=== PATIENT | female | born 1945 | race Caucasian/White ===

== ENCOUNTER 2019-06-24 09:51 | Outpatient (CLI) | payer MEDICARE, SELFPAY ==
--- NOTE | ~2019-06-24 | MM_ITS ---
EXAMINATION: MM screening claudia BI w akin HISTORY: Screening mammogram TECHNIQUE: Craniocaudal and mediolateral oblique 3-D tomosynthesis images were obtained and synthetic 2-D images were generated. CAD analysis was submitted and interpreted. COMPARISON: No prior mammogram is available for comparison at this institution. BREAST PARENCHYMAL COMPOSITION: FINDINGS: Circumscribed benign-appearing partially peripherally calcified 4.5 x 6.5 mm lesion is note d in the upper central right breast. There is no evidence of suspicious mass, calcification, or archi tectural distortion to suggest malignancy in either breast. There has been no suspicious interval liz nge. IMPRESSION: 1. No mammographic evidence of malignancy. 2. Recommend routine screening mammography in one year. BI-RADS Category 2: Benign finding(s). Reviewed, dictated and finalized at location A. UCT CRAFTSMAN
--- NOTE | ~2019-06-24 | DEXA_ITS ---
Bone Density Report Name: Milka Gomez Age: 73 Sex: Female Ethnicity: White Date of : 1945 Indication: postmenopausal; parental hip fracture; cancer; hysterectomy; Referring Provider: PHYSICIAN NOT ON STAFF Study: Bone densitometry was performed. Exam Date: June 24, 2019 Accession number: [id number] Bone Density: Region BMD T-score Z-score Classification AP Spine (L1, L3) 1.073 0.5 2.7 Normal Femoral Neck (Left) 0.739 -1.0 1.0 Normal Total Hip (Left) 0.925 -0.1 1.5 Normal Total Hip Bilateral Avg 0.891 -0.4 1.2 Normal Femoral Neck (Right) 0.701 -1.3 0.6 Osteopenia Total Hip (Right) 0.856 -0.7 0.9 Normal World Health Organization criteria for BMD impression classify patients as: Normal (T-score at or above -1.0), Osteopenia (T-score between -1.0 and -2.5), or Osteoporosis (T-score at or below -2.5). 10-year Fracture Risk(1): Major Osteoporotic Fracture 16% Hip Fracture 4.7% Reported Risk Factors: [place] (), Neck BMD=0.701, BMI=26.9, parental fracture (1) FRAX(R) Version 3.08. Fracture probability calculated for an untreated patient. Fracture probability may be lower if the patient has received treatment. Previous Exams: Region Exam Age BMD T-score BMD Change BMD Change Date g/cm2 vs Baseline vs Previous AP Spine(L1, L3) 06/24/2019 73 1.073 0.5 0.007(0.7%)# 0.007(0.7%)# 08/25/2011 65 1.066 0.5 Total Hip(Left) 06/24/2019 73 0.925 -0.1 -0.027(-2.9%)# -0.027(-2.9%)# 08/25/2011 65 0.952 0.1 Total Hip(Right) 06/24/2019 73 0.856 -0.7 -0.078(-8.3%)# -0.078(-8.3%)# 08/25/2011 65 0.933 -0.1 *Denotes significance at 95% confidence level, LSC for AP Spine = 0.022 g/cm2, LSC for Total Hip = 0.027 g/cm2 Clinical Information Provided by Patient: Parent has had a hip fracture Has used the following medications: Vitamin D, Calcium Has the following medical conditions: Cancer, Hysterectomy Patient maximum height was 65 Menopause Age: 53 No regular weight bearing exercise Drinks caffeinated beverages Onset of menses at age 13 Number of children 0 Impression: The patient has low bone mass, based on the Right Femoral Neck T-score. The patient has an estimated ten-year risk of hip fracture of 4.7% and an estimated ten-year risk of major fracture of 16%, based on the WHO FRAX algorithm. The patient has risk factors, including: parental hip fracture. No significant bone loss was observed. Discuss
== END 2019-06-24 09:52 | disposition home or self-care (01) ==
PROVIDERS: PCP Internal Medicine
DX: Z12.31 Encounter for screening mammogram for malignant neoplasm of breast (principal); M81.0 Age-related osteoporosis without current pathological fracture; M85.851 Other specified disorders of bone density and structure, right thigh
CPT/HCPCS: 77063; 77067; 77080

== ENCOUNTER 2019-07-26 12:45 | Outpatient (CLI) | payer MEDICARE, SELFPAY | END 2019-07-26 12:46 | disposition home or self-care (01) | PROVIDERS: PCP Internal Medicine; Visit Provider Internal Medicine | DX: J06.9 Acute upper respiratory infection, unspecified (principal) | CPT/HCPCS: 87070; 87205 ==

== ENCOUNTER 2019-11-15 15:08 | Outpatient (CLI) | payer MEDICARE, SELFPAY ==
[2019-11-15 16:06] LABS: Blood Urea Nitrogen 17 mg/dL (7-17); Calcium 8.9 mg/dL (8.4-10.2); Carbon Dioxide 29 mmol/L (22-30); Chloride 102 mmol/L (98-107); Cholesterol 151 mg/dL (0-200); Estimated Glomerular Filt Rate > 60; Glucose 95 mg/dL (65-105); HDL Direct 60 mg/dL; Hemoglobin A1C 5.8 % (<5.7); Potassium 3.9 mmol/L (3.4-5.0); Sodium 139 mmol/L (137-145); Triglycerides 155 mg/dL (<150)
[2019-11-15 16:17] LABS: LDL Cholesterol Direct 73 mg/dL
[2019-11-15 16:37] LABS: Thyroid Stimulating Hormone 0.931 uIU/mL (0.465-4.680)
== END 2019-11-15 15:09 | disposition home or self-care (01) ==
LOC: ANHLAB 15:10
PROVIDERS: PCP Internal Medicine; Visit Provider Internal Medicine
DX: E78.2 Mixed hyperlipidemia (principal); Z79.899 Other long term (current) drug therapy
CPT/HCPCS: 36415; 80048; 80061; 83036; 84443

== ENCOUNTER 2020-10-23 14:35 | Outpatient (CLI) | payer MEDICARE, SELFPAY ==
--- NOTE | ~2020-10-23 | XR_ITS ---
XR lumbar spine 2-3V 10/23/2020 14:58 Indication: Low back pain Procedure: KUB Comparison: No prior studies for comparison. Findings: There is disc narrowing at all lumbar levels. There is grade 1 degenerative spondylolisthes is at L4-5. There is moderate multilevel facet hypertrophy of the mid and lower lumbar spine. No acut e fracture or traumatic malalignment. Pedicles intact. Sacral foramen are symmetric Impression: 1: Moderate-severe lumbar spondylosis. Reviewed, dictated and finalized at location B. Impression: 1: Moderate-severe lumbar spondylosis.
--- NOTE | ~2020-10-23 | XR_ITS ---
EXAMINATION: XR shoulder LT min 2V DATE: 10/23/2020 14:57 INDICATION: Left shoulder pain. TECHNIQUE: 4 views of left shoulder were obtained. COMPARISON: None. FINDINGS: Bone alignment is normal. No fracture. There is mild osteoarthritis of glenohumeral joint a nd acromioclavicular joint characterized by tiny marginal osteophytes. IMPRESSION: 1. Mild polyarticular osteoarthritis. Reviewed, dictated and finalized at location A.
== END 2020-10-23 14:36 | disposition home or self-care (01) ==
PROVIDERS: PCP Internal Medicine; Visit Provider Internal Medicine
DX: M19.012 Primary osteoarthritis, left shoulder (principal); M47.896 Other spondylosis, lumbar region
CPT/HCPCS: 72100; 73030

== ENCOUNTER → 2020-11-25 12:46 | Outpatient (CLI) | payer MEDICARE, SELFPAY ==
--- NOTE | ~2020-11-25 | MM_ITS ---
EXAMINATION: MM screening claudia BI w akin HISTORY: Screening mammogram, family history of breast cancer in her mother. TECHNIQUE: Craniocaudal and mediolateral oblique 3-D tomosynthesis images were obtained and synthetic 2-D images were generated. CAD analysis was submitted and interpreted. COMPARISON: 06/24/2019, 03/01/2017, 11/06/2014 BREAST PARENCHYMAL COMPOSITION: The breasts are almost entirely fatty. FINDINGS: There is no evidence of suspicious mass, calcification, or architectural distortion to sugg est malignancy in either breast. There has been no suspicious interval change. IMPRESSION: 1. No mammographic evidence of malignancy. 2. Recommend routine screening mammography in one year. BI-RADS Category 1: Negative Reviewed, dictated and finalized at location A.
== END ==
PROVIDERS: PCP Internal Medicine
DX: Z12.31 Encounter for screening mammogram for malignant neoplasm of breast (principal)
CPT/HCPCS: 77063; 77067

== ENCOUNTER 2020-12-11 15:34 | Outpatient (CLI) | payer MEDICARE, SELFPAY ==
[2020-12-11 16:05] LABS: Basophils Absolute Auto 0.1 K/mm3 (0.0-0.1); Basophils Percent Auto 1.1 % (0.2-1.2); Eosinophils Absolute Auto 0.2 K/mm3 (0-0.3); Eosinophils Percent Auto 4.3 % (0-4.4); Hematocrit 42.7 % (37.0-47.0); Hemoglobin 13.7 g/dL (12.0-15.0); Immature Granulocyte Absolute 0.01 K/mm3 (0.00-0.031); Immature Granulocyte Percent A 0.2 % (0-0.5); Lymphocytes Absolute Auto 1.17 K/mm3 (0.9-3.2); Lymphocytes Percent Auto 26.4 % (18.3-44.2); Mean Corpuscular HGB Conc 32.1 g/dl (32-36); Mean Corpuscular Hemoglobin 30.9 pg (26-34); Mean Corpuscular Volume 96.2 fl (80-100); Mean Platelet Volume 10.2 fl (7.4-10.4); Monocytes Absolute Auto 0.4 K/mm3 (0.1-0.6); Neutrophils Absolute Auto 2.6 K/mm3 (1.3-6.7); Platelet Count Result 214 k/mm3 (150-375); Red Blood Count 4.44 M/mm3 (4.2-5.4); Red Cell Distribution Width 13.8 % (11.5-14.5); White Blood Count 4.4 K/mm3 (4.5-10.0)
[2020-12-11 16:12] LABS: Alanine Aminotransferase 30 U/L (4-35); Albumin Level 4.2 g/dL (3.5-5.1); Alkaline Phosphatase 64 U/L (38-126); Anion Gap 6 mmol/L (8-16); Aspartate Amino Transferase 31 U/L (14-36); Bilirubin,Total 0.2 mg/dL (0.2-1.3); Blood Urea Nitrogen 17 mg/dL (7-17); Calcium 9.4 mg/dL (8.4-10.2); Carbon Dioxide 30 mmol/L (22-30); Chloride 105 mmol/L (98-107); Cholesterol 136 mg/dL (0-200); Estimated Glomerular Filt Rate > 60; Glucose 101 mg/dL (65-110); HDL Direct 64 mg/dL; Potassium 4.2 mmol/L (3.4-5.0); Sodium 141 mmol/L (137-145); Triglycerides 208 mg/dL (<150)
[2020-12-11 16:22] LABS: LDL Cholesterol Direct 54 mg/dL
[2020-12-11 16:58] LABS: Hemoglobin A1C 5.6 % (<5.7)
[2020-12-16 01:32] LABS: Vitamin D 1,25 (OH)2 Total 38 pg/mL (18-72); Vitamin D2 1,25 (OH)2 <8 pg/mL; Vitamin D3 1,25 (OH)2 38 pg/mL
== END 2020-12-11 15:35 | disposition home or self-care (01) ==
LOC: ANHLAB 15:36
PROVIDERS: PCP Internal Medicine; Visit Provider Internal Medicine
DX: E55.9 Vitamin D deficiency, unspecified (principal); E78.2 Mixed hyperlipidemia; R73.03 Prediabetes; Z79.899 Other long term (current) drug therapy
CPT/HCPCS: 36415; 80053; 80061; 82652; 83036; 85025

== ENCOUNTER 2021-09-15 14:40 | Outpatient (CLI) | payer MEDICARE, SELFPAY ==
--- NOTE | ~2021-09-15 | MR_ITS ---
EXAMINATION: MR lumbar spine wo con DATE: 09/15/2021 15:51 INDICATION: Dorsalgia, unspecified. TECHNIQUE: Magnetic resonance imaging (MRI) of the lumbar spine was performed without intravenous con trast. Sequences included sagittal T2-weighted FSE, sagittal T2-weighted FS FSE, sagittal T1-weighted FSE, and axial T2-weighted FSE. COMPARISON: Lumbar spine radiograph 10/23/2020 FINDINGS: There is 9 degrees levocurvature of lumbar spine. There is 3 mm retrolisthesis of L1 on L2 and 5 mm anterolisthesis of L4 on L5. There is mild chronic anterior wedging of T10 and T11 vertebral bodies. There is mildly decreased disc height at T12-L1, moderately decreased disc height at L1-L2 a nd L2-L3, and mildly decreased disc height at L3-L4 and L4-L5. There is ligamentum flavum hypertrophy at the disc levels from L1-L2 through L4-L5. The distal spinal cord signal intensity is normal. The conus medullaris is at L1. The following disc levels are specifically discussed: L1-L2: The disc is bulging with superimposed left central extrusion. There is moderate bilateral face t joint osteoarthritis. There is mild bilateral neural foraminal stenosis. There is mild central janina l stenosis. L2-L3: The disc is bulging and has an annular fissure. There is severe bilateral facet joint osteoart hritis. There is mild bilateral neural foraminal stenosis. There is mild central canal stenosis. L3-L4: The disc is bulging and has an annular fissure. There is severe bilateral facet joint osteoart hritis. There is moderate bilateral neural foraminal stenosis. There is moderate central canal stenos is. L4-L5: The disc is bulging and has an annular fissure. There is severe bilateral facet joint osteoart hritis. There is mild bilateral neural foraminal stenosis. There is severe central canal stenosis. L5-S1: The disc does not extend beyond the endplate margin. There is severe bilateral facet joint ost eoarthritis. There is mild bilateral neural foraminal stenosis. There is no central canal stenosis. IMPRESSION: 1. Severe lumbar spondylosis. Reviewed, dictated and finalized at location B.
== END 2021-09-15 14:41 | disposition home or self-care (01) ==
PROVIDERS: PCP Internal Medicine; Visit Provider Internal Medicine
DX: G89.29 Other chronic pain (principal); M54.9 Dorsalgia, unspecified; M43.10 Spondylolisthesis, site unspecified; M47.816 Spondylosis without myelopathy or radiculopathy, lumbar region
CPT/HCPCS: 72148

== ENCOUNTER 2021-10-27 10:12 | Outpatient (CLI) | payer MEDICARE, SELFPAY ==
[2021-10-27 10:42] LABS: Basophils Absolute Auto 0.1 K/mm3 (0.0-0.1); Basophils Percent Auto 1.2 % (0.2-1.2); Eosinophils Absolute Auto 0.1 K/mm3 (0-0.3); Eosinophils Percent Auto 2.7 % (0-4.4); Hematocrit 42.5 % (37.0-47.0); Immature Granulocyte Absolute 0.01 K/mm3 (0.00-0.031); Immature Granulocyte Percent A 0.2 % (0-0.5); Mean Corpuscular HGB Conc 32.9 g/dl (32-36); Mean Corpuscular Hemoglobin 31.7 pg (26-34); Mean Corpuscular Volume 96.2 fl (80-100); Mean Platelet Volume 9.8 fl (7.4-10.4); Monocytes Absolute Auto 0.7 K/mm3 (0.1-0.6); Monocytes Percent Auto 13.7 % (2.6-8.5); Neutrophils Absolute Auto 2.7 K/mm3 (1.3-6.7); Neutrophils Percent Auto 55.2 % (45.5-73.1); Platelet Count Result 214 k/mm3 (150-375); Red Blood Count 4.42 M/mm3 (4.2-5.4); Red Cell Distribution Width 13.7 % (11.5-14.5); White Blood Count 4.8 K/mm3 (4.5-10.0)
[2021-10-27 10:51] LABS: Alanine Aminotransferase 26 U/L (6-35); Albumin Level 4.3 g/dL (3.5-5.1); Alkaline Phosphatase 52 U/L (38-126); Anion Gap 3 mmol/L (8-16); Aspartate Amino Transferase 26 U/L (14-36); Bilirubin,Total 0.2 mg/dL (0.2-1.3); Blood Urea Nitrogen 15 mg/dL (7-17); Calcium 8.9 mg/dL (8.4-10.2); Carbon Dioxide 31 mmol/L (22-30); Chloride 106 mmol/L (98-107); Cholesterol 150 mg/dL (0-200); Estimated Glomerular Filt Rate > 60; Glucose 98 mg/dL (65-110); HDL Direct 64 mg/dL; Potassium 4.3 mmol/L (3.4-5.0); Sodium 140 mmol/L (137-145); Triglycerides 94 mg/dL (<150)
[2021-10-27 11:02] LABS: LDL Cholesterol Direct 59 mg/dL
[2021-10-27 11:03] LABS: Hemoglobin A1C 5.6 % (<5.7)
[2021-10-27 11:35] LABS: Free T4 Free Thyroxine 0.85 ng/mL (0.78-2.19); Vitamin D 25 Hydroxy 51.6 ng/mL
== END 2021-10-27 10:13 | disposition home or self-care (01) ==
LOC: ANHLAB 10:14
PROVIDERS: PCP Internal Medicine; Visit Provider Internal Medicine
DX: E78.2 Mixed hyperlipidemia (principal); Z79.899 Other long term (current) drug therapy; E55.9 Vitamin D deficiency, unspecified; R73.03 Prediabetes; Z13.29 Encounter for screening for other suspected endocrine disorder
CPT/HCPCS: 36415; 80053; 80061; 82306; 83036; 84439; 84443; 85025

== ENCOUNTER 2022-03-03 15:17 | Outpatient (CLI) | payer MEDICARE, SELFPAY ==
[2022-03-03 16:21] LABS: Alanine Aminotransferase 28 U/L (6-35); Albumin Level 4.6 g/dL (3.5-5.1); Alkaline Phosphatase 50 U/L (38-126); Anion Gap 11 mmol/L (8-16); Aspartate Amino Transferase 29 U/L (14-36); Bilirubin,Total 0.3 mg/dL (0.2-1.3); Blood Urea Nitrogen 15 mg/dL (7-17); Carbon Dioxide 27 mmol/L (22-30); Chloride 102 mmol/L (98-107); Cholesterol 140 mg/dL (0-200); Estimated Glomerular Filt Rate > 60; Glucose 109 mg/dL (65-110); HDL Direct 73 mg/dL; Potassium 4.1 mmol/L (3.4-5.0); Sodium 140 mmol/L (137-145); Triglycerides 97 mg/dL (<150)
[2022-03-03 16:32] LABS: LDL Cholesterol Direct 50 mg/dL
[2022-03-03 17:25] LABS: Hemoglobin A1C 5.8 % (<5.7)
== END 2022-03-03 15:18 | disposition home or self-care (01) ==
PROVIDERS: PCP Internal Medicine; Visit Provider Internal Medicine
DX: R73.03 Prediabetes (principal); E78.2 Mixed hyperlipidemia; Z79.899 Other long term (current) drug therapy
CPT/HCPCS: 36415; 80053; 80061; 83036

== ENCOUNTER → 2022-04-11 07:27 | Outpatient (CLI) | payer MEDICARE, SELFPAY ==
--- NOTE | ~2022-04-11 | MM_ITS ---
EXAMINATION: MM screening claudia BI w akin HISTORY: Screening mammogram, family history of breast cancer in her mother. TECHNIQUE: Craniocaudal and mediolateral oblique 3-D tomosynthesis images were obtained and synthetic 2-D images were generated. CAD analysis was submitted and interpreted. COMPARISON: 11/25/2020, 06/24/2019, 03/01/2017 BREAST PARENCHYMAL COMPOSITION: There are scattered areas of fibroglandular density. FINDINGS: No suspicious mass, calcification, or architectural distortion are identified in either ren ast to suggest malignancy. There has been no suspicious interval change. IMPRESSION: 1. No mammographic evidence of malignancy. 2. Recommend routine screening mammography in one year. BI-RADS Category 1: Negative Reviewed, dictated and finalized at location A. I PRACTITIONER
== END ==
PROVIDERS: PCP Internal Medicine
DX: Z12.31 Encounter for screening mammogram for malignant neoplasm of breast (principal)
CPT/HCPCS: 77063; 77067

== ENCOUNTER 2022-04-25 14:27 | Outpatient (CLI) | payer MEDICARE, SELFPAY ==
--- NOTE | ~2022-04-25 | DEXA_ITS ---
Bone Density Report Name: SASHA HENDERSON Age: 76 Sex: Female Ethnicity: White Date of : 1945 Indication: postmenopausal; screening for osteoporosis; height loss; cancer; hysterectomy; Referring Provider: JUDIE IZQUIERDO Study: Bone densitometry was performed. Exam Date: April 25, 2022 Accession number: [id number] Bone Density: Region BMD T-score Z-score Classification AP Spine(L1, L3) 1.054 0.4 2.7 Normal Femoral Neck (Left) 0.714 -1.2 0.9 Osteopenia Total Hip (Left) 0.866 -0.6 1.2 Normal Femoral Neck (Right) 0.706 -1.3 0.8 Osteopenia Total Hip (Right) 0.806 -1.1 0.7 Osteopenia Total Hip Mean 0.836 -0.9 1.0 Normal World Health Organization criteria for BMD impression classify patients as: Normal (T-score at or above -1.0), Osteopenia (T-score between -1.0 and -2.5), or Osteoporosis (T-score at or below -2.5). 10-year Fracture Risk(1): Major Osteoporotic Fracture 11% Hip Fracture 2.0% Reported Risk Factors: [place] (), Neck BMD=0.706, BMI=28.1 (1) FRAX(R) Version 3.08. Fracture probability calculated for an untreated patient. Fracture probability may be lower if the patient has received treatment. Clinical Information Provided by Patient: Has used the following medications: Vitamin D, Calcium Has the following medical conditions: Cancer, Hysterectomy Patient maximum height was 65 Menopause Age: 53 No regular weight bearing exercise Drinks caffeinated beverages Onset of menses at age 12 Number of children 0 Impression: The patient has low bone mass, based on the Right Femoral Neck T-score. The patient has an estimated ten-year risk of hip fracture of 2% and an estimated ten-year risk of major fracture of 11%, based on the WHO FRAX algorithm. Discussion: BONE DENSITY IS LOW AT ONE OR MORE SKELETAL SITES. This patient's lowest T-score is low at one or more skeletal sites. It meets the World Health Organization's (WHO) criteria for ?low bone mass? (T-score between -1.0 and -2.5). The patient's 10-year risk of fracture as calculated by FRAX is less than the threshold where pharmacological therapy is recommended by the National Osteoporosis Foundation (NOF). However, all treatment decisions require clinical judgment and consideration of individual patient factors, including patient preferences, comorbidities, previous drug use, risk factors not captured in the FRAX model (e.g., frailty, falls, vitamin D deficiency, increased bone turnover, interval significant decline in bone density) and possible under or overestimation of fracture risk by FRAX. The patient should follow a healthful lifestyle (good nutrition with adequate calcium and vitamin D, and appropriate weight-bearing exercise). Follow-Up: Consider repeating this study in 2 to 3 years to reassess thi
== END 2022-04-25 14:28 | disposition home or self-care (01) ==
LOC: ANHIMG 14:29
PROVIDERS: PCP Internal Medicine; Visit Provider Internal Medicine
DX: Z78.0 Asymptomatic menopausal state (principal); M85.852 Other specified disorders of bone density and structure, left thigh; M85.851 Other specified disorders of bone density and structure, right thigh
CPT/HCPCS: 77080

== ENCOUNTER 2022-08-18 11:24 | Outpatient (CLI) | payer MEDICARE, SELFPAY ==
[2022-08-18 13:11] LABS: Influenza A QL RT-PCR Negative (Negative); Influenza B QL RT-PCR Negative (Negative); SARS-CoV-2 RNA PCR Positive
== END 2022-08-18 11:25 | disposition home or self-care (01) ==
LOC: ANHLAB 11:26
PROVIDERS: PCP Internal Medicine; Visit Provider Internal Medicine
DX: U07.1 COVID-19 (principal)
CPT/HCPCS: 87636

== ENCOUNTER 2022-08-29 17:00 | Outpatient (CLI) | payer MEDICARE, SELFPAY ==
[2022-08-29 17:21] LABS: Basophils Absolute Auto 0.1 K/mm3 (0.0-0.1); Basophils Percent Auto 1.4 % (0.2-1.2); Eosinophils Absolute Auto 0.1 K/mm3 (0-0.3); Hematocrit 39.8 % (37.0-47.0); Hemoglobin 12.7 g/dL (12.0-15.0); Lymphocytes Absolute Auto 1.43 K/mm3 (0.9-3.2); Lymphocytes Percent Auto 28.7 % (18.3-44.2); Mean Corpuscular HGB Conc 31.9 g/dl (32-36); Mean Corpuscular Hemoglobin 30.6 pg (26-34); Mean Corpuscular Volume 95.9 fl (80-100); Mean Platelet Volume 9.8 fl (7.4-10.4); Monocytes Absolute Auto 0.5 K/mm3 (0.1-0.6); Monocytes Percent Auto 10.2 % (2.6-8.5); Neutrophils Absolute Auto 2.9 K/mm3 (1.3-6.7); Neutrophils Percent Auto 57.7 % (45.5-73.1); Platelet Count Result 241 k/mm3 (150-375); Red Blood Count 4.15 M/mm3 (4.2-5.4); Red Cell Distribution Width 14.3 % (11.5-14.5)
== END 2022-08-29 17:01 | disposition home or self-care (01) ==
PROVIDERS: PCP Internal Medicine; Visit Provider Internal Medicine
DX: D72.9 Disorder of white blood cells, unspecified (principal)
CPT/HCPCS: 36415; 85025

== ENCOUNTER 2022-11-16 14:06 | Outpatient (CLI) | payer MEDICARE, SELFPAY ==
--- NOTE | ~2022-11-16 | XR_ITS ---
XR hip BI 2V w AP pelvis DATE: 11/16/2022 14:38 INDICATION: Bilateral hip pain TECHNIQUE: AP pelvis. AP and lateral views of each hip. COMPARISON: None FINDINGS: Status post lower lumbar laminectomy and posterior surgical fusion at L3-5, interbody spina l fusion at L4-5. Normal alignment at the pubic symphysis and sacroiliac joints. No pelvic fracture or bone destruction is detected. No fracture or dislocation, avascular necrosis or bone destruction of either hip is evident. IMPRESSION: Status post lumbar laminectomy and L3-5 surgical fusion Reviewed, dictated and finalized at location A.
== END 2022-11-16 14:07 | disposition home or self-care (01) ==
PROVIDERS: PCP Internal Medicine; Visit Provider Internal Medicine
DX: M25.552 Pain in left hip (principal); M25.551 Pain in right hip; M96.1 Postlaminectomy syndrome, not elsewhere classified
CPT/HCPCS: 73521

== ENCOUNTER 2023-01-02 15:55 | Outpatient (CLI) | payer MEDICARE, SELFPAY ==
[2023-01-02 16:53] LABS: Alanine Aminotransferase 38 U/L (6-35); Albumin Level 4.4 g/dL (3.5-5.1); Alkaline Phosphatase 49 U/L (38-126); Anion Gap 6 mmol/L (8-16); Aspartate Amino Transferase 36 U/L (14-36); Bilirubin,Total 0.3 mg/dL (0.2-1.3); Blood Urea Nitrogen 14 mg/dL (7-17); Calcium 8.9 mg/dL (8.4-10.2); Carbon Dioxide 31 mmol/L (22-30); Chloride 102 mmol/L (98-107); Cholesterol 140 mg/dL (0-200); Estimated Glomerular Filt Rate > 60; Glucose 109 mg/dL (65-110); HDL Direct 56 mg/dL; Potassium 3.7 mmol/L (3.4-5.0); Sodium 139 mmol/L (137-145); Triglycerides 115 mg/dL (<150)
[2023-01-02 17:04] LABS: LDL Cholesterol Direct 65 mg/dL
[2023-01-02 17:22] LABS: Thyroid Stimulating Hormone 0.864 uIU/mL (0.465-4.680)
[2023-01-02 18:26] LABS: Vitamin D 25 Hydroxy 41.4 ng/mL
[2023-01-02 20:12] LABS: Hemoglobin A1C 5.6 % (<5.7)
== END 2023-01-02 15:56 | disposition home or self-care (01) ==
PROVIDERS: PCP Internal Medicine; Visit Provider Internal Medicine
DX: Z13.29 Encounter for screening for other suspected endocrine disorder (principal); Z79.899 Other long term (current) drug therapy; E55.9 Vitamin D deficiency, unspecified; E78.2 Mixed hyperlipidemia; R73.03 Prediabetes
CPT/HCPCS: 36415; 80053; 80061; 82306; 83036; 84439; 84443

== ENCOUNTER 2023-03-27 08:12 | Outpatient (CLI) | payer MEDICARE, SELFPAY ==
--- NOTE | ~2023-03-27 | XR_ITS ---
EXAMINATION: XR UGIAC wo kub DATE: 03/27/2023 08:49 INDICATION: Gastroesophageal reflux disease. TECHNIQUE: The patient drank thick barium, gas-producing crystals, and thin barium. Fluoroscopy of th e esophagus, stomach, and proximal small bowel was performed. Fluoroscopy exposure time was 0.8 minut es. The total number of images was 283. Total dose-area product was 2.642 Gy-cm^2. COMPARISON: None. FINDINGS: There is no mass or stricture of the esophagus. Esophageal motility is normal. There is a s mall sliding hiatal hernia. The stomach and proximal small bowel show normal folding patterns. IMPRESSION: 1. Small sliding hiatal hernia. Reviewed, dictated and finalized at location A. TRONICS TECHNICIAN
== END 2023-03-27 08:13 | disposition home or self-care (01) ==
PROVIDERS: PCP Internal Medicine; Visit Provider Internal Medicine
DX: K21.9 Gastro-esophageal reflux disease without esophagitis (principal); K44.9 Diaphragmatic hernia without obstruction or gangrene
CPT/HCPCS: 74246

== ENCOUNTER 2023-05-24 14:31 | Outpatient (CLI) | payer MEDICARE, SELFPAY ==
[2023-05-24 15:08] LABS: Basophils Percent Auto 0.8 % (0.2-1.2); Eosinophils Absolute Auto 0.1 K/mm3 (0-0.3); Eosinophils Percent Auto 2.8 % (0-4.4); Hematocrit 43.6 % (37.0-47.0); Hemoglobin 13.9 g/dL (12.0-15.0); Immature Granulocyte Absolute 0.01 K/mm3 (0.00-0.031); Immature Granulocyte Percent A 0.2 % (0-0.5); Lymphocytes Absolute Auto 1.26 K/mm3 (0.9-3.2); Lymphocytes Percent Auto 25.5 % (18.3-44.2); Mean Corpuscular HGB Conc 31.9 g/dl (32-36); Mean Corpuscular Hemoglobin 30.9 pg (26-34); Mean Corpuscular Volume 96.9 fl (80-100); Mean Platelet Volume 9.6 fl (7.4-10.4); Monocytes Absolute Auto 0.5 K/mm3 (0.1-0.6); Monocytes Percent Auto 9.1 % (2.6-8.5); Neutrophils Percent Auto 61.6 % (45.5-73.1); Platelet Count Result 262 k/mm3 (150-375); Red Cell Distribution Width 13.5 % (11.5-14.5); White Blood Count 4.9 K/mm3 (4.5-10.0)
[2023-05-24 15:16] LABS: Appearance Urine Clear (Clear); Bacteria Urine None Seen /hpf; Bilirubin Urine Negative (Negative); Blood Urine Negative (Negative); Color Urine Yellow (Yellow); Glucose Urine UA Negative (Negative); Ketones Urine Negative (Negative); Leukocyte Esterase Ur 1+ LEU/UL (Negative); Nitrate Urine Negative (Negative); Non Pathogenic Casts 0-2; Protein Urine Negative (Negative); RBC Urine 0-2 /hpf (0-2); Specific Grav Ur 1.012 (1.001-1.035); Squamous Epithelial Cell Urine Occasional /hpf (Few); Urobilinogen Urine 0.2 mg/dL (<2.0); pH Urine 7.5 (5.0-9.0)
[2023-05-24 15:22] LABS: Alanine Aminotransferase 26 U/L (6-35); Albumin Level 4.3 g/dL (3.5-5.1); Alkaline Phosphatase 55 U/L (38-126); Anion Gap 6 mmol/L (8-16); Aspartate Amino Transferase 27 U/L (14-36); Bilirubin,Total 0.4 mg/dL (0.2-1.3); Blood Urea Nitrogen 14 mg/dL (7-17); Carbon Dioxide 33 mmol/L (22-30); Chloride 101 mmol/L (98-107); Cholesterol 152 mg/dL (0-200); Estimated Glomerular Filt Rate > 60; Glucose 105 mg/dL (65-110); HDL Direct 59 mg/dL; Potassium 3.8 mmol/L (3.4-5.0); Sodium 140 mmol/L (137-145); Triglycerides 123 mg/dL (<150)
[2023-05-24 15:23] LABS: Add Urine Microscopic? YES
[2023-05-24 15:26] LABS: Hemoglobin A1C 5.9 % (<5.7)
[2023-05-24 15:33] LABS: LDL Cholesterol Direct 70 mg/dL
[2023-05-24 15:42] LABS: Vitamin D 25 Hydroxy 37.7 ng/mL
== END 2023-05-24 14:32 | disposition home or self-care (01) ==
LOC: ANHLAB 14:36
PROVIDERS: PCP Internal Medicine; Visit Provider Internal Medicine
DX: E55.9 Vitamin D deficiency, unspecified (principal); Z79.899 Other long term (current) drug therapy; E78.2 Mixed hyperlipidemia; R73.03 Prediabetes
CPT/HCPCS: 36415; 80053; 80061; 81001; 82306; 83036; 85025; 87086; 87088

== ENCOUNTER → 2023-07-07 16:06 | Outpatient (CLI) | payer MEDICARE, SELFPAY ==
--- NOTE | ~2023-07-07 | MM_ITS ---
EXAMINATION: MM screening claudia BI w akin HISTORY: Screening TECHNIQUE: Craniocaudal and mediolateral oblique 3-D tomosynthesis images were obtained and synthetic 2-D images were generated. CAD analysis was submitted and interpreted. COMPARISON: No prior mammogram is available for comparison at this institution. BREAST PARENCHYMAL COMPOSITION: There are scattered areas of fibroglandular density. FINDINGS: There is no evidence of suspicious mass, calcification, or architectural distortion to sugg est malignancy in either breast. There has been no suspicious interval change. IMPRESSION: 1. No mammographic evidence of malignancy. 2. Recommend routine screening mammography in one year. BI-RADS Category 1: Negative Reviewed, dictated and finalized at location A. H WASHER BACK TENDER
== END ==
DX: Z12.31 Encounter for screening mammogram for malignant neoplasm of breast (principal)
CPT/HCPCS: 77063; 77067

== ENCOUNTER 2023-10-31 16:18 | Outpatient (CLI) | payer MEDICARE, SELFPAY ==
--- NOTE | ~2023-10-31 | XR_ITS ---
XR hip RT 2V w AP pelvis Ordering provider: Dave Stovall MD History: . M25.551 - Pain in right hip . Comparison: November 16, 2022 FINDINGS: BONES: No acute fracture or dislocation. Postoperative changes in the lower lumbar area. HIP JOINT SPACES: Normal. SACROILIAC JOINT SPACES/LUMBAR SPINE: Left sacroiliitis. Mild degenerative changes of the visualized lower lumbar spine. PUBIC SYMPHYSIS: Pubic symphysitis. SOFT TISSUES: Normal. IMPRESSION: No acute osseous abnormality pelvis and right hip. Reviewed, dictated and finalized at location A.
== END 2023-10-31 16:19 | disposition home or self-care (01) ==
LOC: ANHIMG 16:21
PROVIDERS: Visit Provider Internal Medicine
DX: M25.551 Pain in right hip (principal)
CPT/HCPCS: 73502

== ENCOUNTER 2023-12-19 14:49 | Outpatient (CLI) | payer MEDICARE, SELFPAY ==
--- NOTE | ~2023-12-19 | XR_ITS ---
EXAM: [id number] DATE: 12/19/2023 15:36 HISTORY: WEIGHT BEARING, PAIN PLANTAR SURFACE . COMPARISON: None available. FINDINGS: Decreased mineralization. No fracture or dislocation. Splaying of the third and fourth toe s. No lytic or blastic lesion. Mild Achilles and plantar enthesopathy. Loss of the normal longitudina l arch. Mild degenerative change at the first MTP joint. No erosion or periosteal change. Soft tissue s within normal limits. IMPRESSION: Mild first MTP joint osteoarthritis. Pes planus. Splayed third and fourth toes which may accompany the presence of a Aleman's neuroma. Reviewed, dictated and finalized at location K.
== END 2023-12-19 14:50 | disposition home or self-care (01) ==
DX: M76.62 Achilles tendinitis, left leg (principal); M72.2 Plantar fascial fibromatosis; M19.072 Primary osteoarthritis, left ankle and foot
CPT/HCPCS: 73630

== ENCOUNTER 2023-12-28 14:15 | Outpatient (CLI) | payer MEDICARE, SELFPAY ==
--- NOTE | ~2023-12-28 | XR_ITS ---
XR hip LT 2V w AP pelvis Ordering provider: Dave Stovall MD History: . POSTERIOR PAIN. NKI . Comparison: October 31, 2023 FINDINGS: BONES: No acute fracture or dislocation. HIP JOINT SPACES: Normal. SACROILIAC JOINT SPACES/LUMBAR SPINE: The sacroiliac joint spaces are normal. Mild degenerative cruz es of the visualized lower lumbar spine.Postoperative changes in the lower lumbar area. PUBIC SYMPHYSIS: Normal. SOFT TISSUES: Normal. IMPRESSION: No acute osseous abnormality pelvis and left hip. Reviewed, dictated and finalized at location A.
== END 2023-12-28 14:16 | disposition home or self-care (01) ==
PROVIDERS: Visit Provider Internal Medicine
DX: M25.552 Pain in left hip (principal)
CPT/HCPCS: 73502

== ENCOUNTER 2024-04-08 16:48 | Outpatient (CLI) | payer MEDICARE, SELFPAY ==
[2024-04-08 17:36] LABS: Basophils Absolute Auto 0.1 K/mm3 (0.0-0.1); Basophils Percent Auto 1.3 % (0.2-1.2); Eosinophils Absolute Auto 0.2 K/mm3 (0-0.3); Eosinophils Percent Auto 2.9 % (0-4.4); Hematocrit 41.5 % (37.0-47.0); Hemoglobin 13.4 g/dL (12.0-15.0); Immature Granulocyte Absolute 0.01 K/mm3 (0.00-0.031); Immature Granulocyte Percent A 0.2 % (0-0.5); Lymphocytes Absolute Auto 1.23 K/mm3 (0.9-3.2); Lymphocytes Percent Auto 23.4 % (18.3-44.2); Mean Corpuscular HGB Conc 32.3 g/dl (32-36); Mean Corpuscular Hemoglobin 31.3 pg (26-34); Mean Platelet Volume 9.4 fl (7.4-10.4); Monocytes Absolute Auto 0.6 K/mm3 (0.1-0.6); Neutrophils Absolute Auto 3.2 K/mm3 (1.3-6.7); Neutrophils Percent Auto 60.2 % (45.5-73.1); Platelet Count Result 222 k/mm3 (150-375); Red Blood Count 4.28 M/mm3 (4.2-5.4); Red Cell Distribution Width 13.5 % (11.5-14.5); White Blood Count 5.3 K/mm3 (4.5-10.0)
[2024-04-08 17:43] LABS: Alanine Aminotransferase 31 U/L (6-35); Albumin Level 4.3 g/dL (3.5-5.1); Alkaline Phosphatase 49 U/L (38-126); Anion Gap 6 mmol/L (4-12); Aspartate Amino Transferase 35 U/L (14-36); Bilirubin,Total 0.5 mg/dL (0.2-1.3); Blood Urea Nitrogen 16 mg/dL (7-17); Carbon Dioxide 29 mmol/L (22-30); Chloride 105 mmol/L (98-107); Cholesterol 146 mg/dL (0-200); Estimated Glomerular Filt Rate > 60; Glucose 95 mg/dL (65-110); HDL Direct 62 mg/dL; Sodium 140 mmol/L (137-145); Triglycerides 103 mg/dL (<150)
[2024-04-08 17:48] LABS: Hemoglobin A1C 5.8 % (<5.7)
[2024-04-08 17:54] LABS: LDL Cholesterol Direct 58 mg/dL
[2024-04-08 18:07] LABS: Free T4 Free Thyroxine 0.85 ng/mL (0.78-2.19); Vitamin D 25 Hydroxy 41.6 ng/mL
[2024-04-08 18:13] LABS: Thyroid Stimulating Hormone 0.824 uIU/mL (0.465-4.680)
== END 2024-04-08 16:49 | disposition home or self-care (01) ==
LOC: ANHLAB 16:51
PROVIDERS: PCP Internal Medicine; Visit Provider Internal Medicine
DX: R73.03 Prediabetes (principal); E78.2 Mixed hyperlipidemia; E55.9 Vitamin D deficiency, unspecified; Z79.899 Other long term (current) drug therapy; Z13.29 Encounter for screening for other suspected endocrine disorder
CPT/HCPCS: 36415; 80053; 80061; 82306; 83036; 84439; 84443; 85025

== ENCOUNTER 2024-06-03 12:26 | Outpatient (CLI) | payer MEDICARE, SELFPAY ==
--- NOTE | ~2024-06-03 | DEXA_ITS ---
Bone Density Report Name: SASHA HENDERSON Age: 78 Sex: Female Ethnicity: White Date of : 1945 Indication: osteopenia; parental hip fracture; height loss; prior fracture; cancer; hysterectomy; Referring Provider: JUDIE IZQUIERDO Study: Bone densitometry was performed. Exam Date: June 03, 2024 Accession number: [id number] Bone Density: Region BMD T-score Z-score Classification AP Spine(L1, L2) 1.033 0.5 2.9 Normal Femoral Neck (Left) 0.701 -1.3 0.9 Osteopenia Total Hip (Left) 0.846 -0.8 1.1 Normal Femoral Neck (Right) 0.744 -0.9 1.3 Normal Total Hip (Right) 0.821 -1.0 0.9 Normal Total Hip Mean 0.833 -0.9 1.0 Normal World Health Organization criteria for BMD impression classify patients as: Normal (T-score at or above -1.0), Osteopenia (T-score between -1.0 and -2.5), or Osteoporosis (T-score at or below -2.5). 10-year Fracture Risk: FRAX not reported because: Prior hip or vertebral fracture Previous Exams: Region Exam Age BMD T-score BMD Change BMD Change Date g/cm2 vs Baseline vs Previous Total Hip(Left) 06/03/2024 78 0.846 -0.8 -0.079 (-8.5%) -0.020 (-2.3%) 04/25/2022 76 0.866 -0.6 -0.059 (-6.4%) -0.059 (-6.4%) 06/24/2019 73 0.925 -0.1 Total Hip(Right) 06/03/2024 78 0.821 -1.0 -0.035 (-4.1%) 0.015 (1.9%) 04/25/2022 76 0.806 -1.1 -0.050 (-5.9%) -0.050 (-5.9%) 06/24/2019 73 0.856 -0.7 *Denotes significance at 95% confidence level, LSC for Total Hip = 0.027 g/cm2 Clinical Information Provided by Patient: Have had a previous hip or vertebral fracture Has had a low trauma fracture Parent has had a hip fracture Has used the following medications: Vitamin D, Calcium Has the following medical conditions: Cancer, Hysterectomy Patient maximum height was 65 Menopause Age: 53 No regular weight bearing exercise Drinks caffeinated beverages Onset of menses at age 12 Number of children 0 Impression: The patient has low bone mass, based on the Left Femoral Neck T-score. The patient has risk factors, including: parental hip fracture, previous fracture. No significant bone loss was observed. Discussion: INCREASED RISK OF FRACTURE DUE TO HISTORY OF FRACTURE. The patient's previous fracture puts the patient at high risk of a future fracture. In untreated patients, the risk of osteoporotic fracture increases approximately two-fold for each 1.0 SD decrease in T-score. Low bone density is not the only risk factor for fracture; also consider factors such as patient's age, frailty or poor health, risk of falling, risk of injury, previous osteoporotic fracture, family history of osteoporosis, cigarette smoking, low body weight, etc. Not everyone with a low trauma fracture has osteoporosis; osteomalacia and other metabolic bone disorders should also be considered. Patients who have osteoporosis should be evaluated for specific diseases and conditions (secondary causes) that may cause or contribute to bone loss and fracture risk. National Osteoporosis Foundation (NOF) recommends pharmacologic intervention for patients with a prior hip or vertebral fracture regardless of BMD T-score. The patient should follow a healthful lifestyle (good nutrition with adequate calcium and vitamin D, and appropriate weight-bearing exercise). Follow-Up: Consider a repeat BMD and Vertebral Fracture Assessment (VFA) exam in 2 years or sooner if medically necessary, to reassess this patient's status. Reported by: JOSIE on 06/03/2024 1:07:00 PM. Reviewed, dictated and finalized at location AChristiano HARDEN
--- OUTSIDE RECORDS SUMMARY | 2024-06-06 13:10 | XMS_ITS | Clinical Summary ---
Author Organization [facility] Address [address] [place] [address] Care Team Providers Care Sack Lifter Name Role Phone Dave Stovall MD Primary Care Provider [phone] Source Comments [facility],non-owned Affiliates and Associated Physician Practices is amultiple site organization consisting of ambulatory clinics and hospital sitesin [place], [place], [place] and [place]. This disclosure is being madepursuant to the Care Everywhere program and may not contain all information available regarding this patient. Last updated 18.[facility] Allergies No known active allergies Medications * Be aware that medications may not be up to date on this document. Alwaysverify current medications with the patient. Medication Sig Dispensed Refills Start Date End Date Status acetaminophen CR (Tylenol Arthritis Pain) 650 MG tablet Take 2 (two) tablets by mouth as needed Active alendronate (Fosamax) 70 MG tablet Take 1 (one) tablet by mouth every 7 days before meal 10/02/2023 Active amitriptyline (Elavil) 10 MG tablet Take 2 (two) tablets by mouth once daily Active buPROPion XL 24hr (Wellbutrin-XL) 150 MG tablet Take 1 (one) tablet by mouth once daily 09/29/2023 Active cetirizine (ZyrTEC) 10 MG tablet Take 1 (one) tablet by mouth at bedtime Active Cholecalciferol 1.25 MG (27313 UT) Take 1 capsule by mouth once daily Active clobetasol (Temovate) 0.05 % ointment Apply to affected area 2 times daily as needed 09/07/2023 Active HYDROcodone-acetamin ophen ([place]) 5-325 MG tablet Take 1 (one) tablet by mouth 4 times daily as needed For pain. 11/14/2023 Active levocetirizine (Xyzal) 5 MG tablet Take 1 (one) tablet by mouth once daily Active Magnesium Citrate 100 MG Take 1 (one) tablet by mouth at bedtime Active Multiple Vitamins-Minerals (PRESERVISION AREDS PO) Take by mouth once daily Active rosuvastatin (Crestor) 10 MG tablet Take 1 (one) tablet by mouth once daily Active meloxicam (Mobic) 15 MG tabletIndications:Pa in of left heel,Plantar fasciitis, left,Achilles tendinitis of left lower extremity Take 1 (one) tablet by mouth once daily as needed with food 30 tablet 1 12/14/2023 Active Active Problems Problem Noted Date Diagnosed Date Lumbar stenosis 06/04/2022 Spondylolisthesis at L4-L5 level 10/27/2021 Overview (12/14/2023): Last Assessment & Plan: Mrs. Henderson wishes to delay consideration of any surgical treatment until after a trip to [place] in the fall. If symptoms worsen and she wishes to proceed with surgery, she would benefit from L3-L5 laminectomy and fusion. Patient to call the office when she is ready to schedule. Encounters Date Type Department Care Team Description 03/12/2024 Refill [facility] - Podiatry [id number] [address] [place] DPM Refill Request from Last 3 Months Social History Tobacco Use Types Packs/Day Years Used Date Smoking Tobacco: Never Smokeless Tobacco: Never Tobacco Cessation:Counseling Given: Not Answered Sex and Gender Information Value Date Recorded Sex Assigned at Female 12/17/2023 11:42 AM CDT Gender Identity Female 12/17/2023 11:42 AM CDT Sexual Orientation Lesbian 12/17/2023 11 :42 AM CDT Last Filed Vital Signs Vital Sign Reading Time Taken Comments Blood Pressure 118/72 12/14/2023 2:45 PM CDT Pulse 74 12/14/2023 2:45 PM CDT Temperature - - Respiratory Rate - - Oxygen Saturation 95% 12/14/2023 2:45 PM CDT Inhaled Oxygen Concentration - - Weight 74.4 kg (164 lb) 12/14/2023 2:45 PM CDT Height 162.6 cm (5' 4 ) 12/14/2023 2:45 PM CDT Body Mass Index 28.15 12/14/2023 2:45 PM CDT Plan of Treatment Health Maintenance Due Date Last Done Comments BONE DENSITY TESTING 1945 HEPATITIS C SCREENING 10/04/1964 DTAP/TDAP/TD VACCINES (1 - Tdap) 1965 PNEUMOCOCCAL VACCINE 50+ (1 of 1 - PCV) 1996 ZOSTER VACCINE (1 of 2) 1996 Respiratory Syncytial Virus (RSV) Vaccine Pt: or over 60 yrs (1 - 1-dose 75+ series) 2021 COVID-19 VACCINE ( - 2023-2 5 season) 2024 INFLUENZA VACCINE (#1) 2024 DEPRESSION SCREENING 05/15/2024 MEDICARE AWV ? CALENDAR YEAR 2024 HEPATITIS B VACCINE Aged Out No longe r eligible based on patient's age to complete this topic HIB VACCINE Aged Out No longer eligi ble based on patient's age to complete this topic HPV VACCINE Aged Out No longer eligi ble based on patient's age to complete this topic MENINGOCOCCAL (Group B) VACCINE Aged Out No longer eligible based on patient's age to complete this topic MENINGOCOCCAL VACCINE Aged Out No [place] eligible based on patient's age to complete this topic Care Teams Sack Lifter Relationship Specialty Start Date End Date Dave Stovall MD [address] [place] [address] PCP - General Internal Medicine 12/14/23
--- OUTSIDE RECORDS SUMMARY | 2024-06-06 13:10 | XMS_ITS | Continuity of Care Document ---
Author Organization [facility] - Main Address [address] [address] Insurance Providers Payer Plan Claims Address Claims Phone Policy Number Group Number Relation Employer Guarantor Name Guarantor Guarantor Address Guarantor Phone [facility] MED[facility] ARE PAWEL BALDERAS [address] [address], [place] [address] [id number] Donavon Gomez 1945 [address] [place] [address] MEDIC ARE PAWEL BALDERAS [address], [place] [address] tel:[phone] Self Milka Gomez 1945 [address] [place] [address] [address] [employer] [address] [address], [place] [address] tel:[phone] Donavon Gomez 1945 [address] [place] [address] Problems Condition ICD9 code ICD10 code SNOMED code Start Date End Date S tatus Dysphagia, unspecified R13.10 W orking Other symptoms and signs involving the musculoskeletal system R29.898 Wo rking Encounter for screening mammogram for malignant neoplasm of breast Z12.31 Workin g Encounter for screening for other suspected endocrine disorder Z13.29 Workin g Pain in left foot M79.672 Workin g 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
--- OUTSIDE RECORDS SUMMARY | 2024-06-06 13:10 | XMS_ITS | Referral Summary ---
Author Organization [facility] Address [address] [place] [address] Care Team Providers Care Military Nurse Name Role Phone Dave Stovall MD Primary Care Provider [phone] Source Comments [facility],non-owned Affiliates and Associated Physician Practices is amultiple site organization consisting of ambulatory clinics and hospital sitesin [place], [place], [place] and [place]. This disclosure is being madepursuant to the Care Everywhere program and may not contain all information available regarding this patient. Last updated 18.[facility] Encounters Date Type Department Care Team Description 03/12/2024 Refill [facility] - Podiatry [address] [place] [address] Es Peacock DPM Refill Request from Last 3 Months Allergies No known active allergies Medications * [...] mouth at bedtime Active Cholecalciferol 1.25 MG (25738 UT) Take 1 capsule by mouth once daily Active clobetasol (Temovate) 0.05 % ointment Apply to affected area 2 times daily as needed 09/07/2023 Active HYDROcodone-acetamin ophen (Reva) 5-325 MG tablet Take 1 (one) tablet [...] surgical treatment until after a trip to [place] in the fall. If symptoms worsen and she wishes to proceed with surgery, she would benefit from L3-L5 laminectomy and fusion. Patient to call the office when she is ready to schedule. Social History Tobacco Use Types Packs/Day Years [...] 12/14/2023 2:45 PM CDT Plan of Treatment Not on file Care Teams Military Nurse Relationship Specialty Start Date End Date Dave Stovall MD [address] [place] [address] PCP - General Internal Medicine 12/14/23
--- OUTSIDE RECORDS SUMMARY | 2024-06-06 13:10 | XMS_ITS | Encounter Summary ---
Author Organization [facility] Health Address [address] [place] [address] Care Team Providers Care Interventional Radiology Tech Name Role Phone Dave Stovall MD Primary Care Provider [phone] Encounter Details Date Type Department Care Team (Late st Contact Info) Description 08/20/2017 Lab Requisition [facility] Derm[facility] Lab [address] [facility] [place] [phone] Hiren Goetz MD [address] [place] [address] Social History Tobacco Use Types Packs/Day Years Used Date Smoking Tobacco: Never Assessed Sex and Gender Information Value Date Recorded Sex Assigned at Female 12/17/2023 11:42 AM CDT Gender Identity Female 12/17/2023 11:42 AM CDT Sexual Orientation Lesbian 12/17/2023 11 :42 AM CDT documented as of this encounter Plan of Treatment Not on file documented as of this encounter Procedures Procedure Name Priority Date/Time Associated Diagnosis Comments DERMATOPATHOLOGY Routine 08/16/2017 12:0 0 AM CDT documented in this encounter Results * DERMATOPATHOLOGY (08/16/2017 12:00 AM CDT) Case Report Dermatopathology Report ? Case: [id number] ? Authorizing Provider: ??Hiren Goetz MD ?Collected: ? 08/16/2017 12:00 AM ? Pathologist: ? Liliana Downey MD ? Received: ?08/20/2017 01:21 PM ? Specimens: ?? A) - Skin, left upper back ? B) - Skin, left mid back ? 3:52 PM CDT DERMATOPATHOLOGY LABORATORY Final Diagnosis Specimen A. SKIN, left upper back: LICHEN PLANUS-LIKE KERATOSIS (BENIGN LICHENOID KERATOSIS) (L82.1) PRESENT AT MARGIN Specimen B. SKIN, left mid back: DERMAL SCAR (L90.5) PRESENT AT MARGIN 3:52 PM T DERMATOPATHOLOGY LABORATORY Clinical History A-B: R/O BCC 3:52 PM CDT DERMATOPATHOLOGY LABORATORY Gross Description Specimen: A: Received is one formalin filled container labeled with the patient's name and designated left upper back. The specimen consists of a shave biopsy measuring 85d82a7 mm, inked. Jar 0. Specimen: B: Received is one formalin filled container labeled with the patient's name and designated left mid back. The specimen consists of a shave biopsy measuring 12w37v4 mm, inked. Jar 0. 3:52 PM CDT DERMATOPATHOLOGY LABORATORY Microscopic Description Specimen A. SKIN, left upper back: The epidermis is mildly acanthotic. There is a lichenoid infiltrate with vacuolar changes of basilar keratinocytes and scattered necrotic keratinocytes. This lesion is present at the margin of the specimen. Specimen B. SKIN, left mid back: There are fibroblasts and collagen bundles oriented parallel to the skin surface with elongated blood vessels, some of which are oriented perpendicular to the skin surface.This lesion is present at the margin of the specimen. 3:52 PM CDT DERMATOPATHOLOGY LABORATORY Disclaimer An external and internal positive and negative controls are appropriate for the histochemical, immunohistochemical and immunofluorescence stain(s) in this case (if any), except where stated explicitly. The performance characteristics of the stain(s) cited in this report were developed and its performance characteristic determined by the Dermatopathology Laboratory at [facility]. These tests need not be, and therefore are not, approved by the [place] Food and Drug Administration. The tests are used for clinical purposes. Billing Codes Specimen Charges Stain Charges 88928 85315 1 1 3:52 PM CDT DERMATOPATHOLOGY LABORATORY Embedded Images 3:52 PM CDT DERMATOPATHOLOGY LABORATORY Pathology/Cytology TISSUE SPECIMEN FROM SKIN / Unknown 08/16/2017 08/20/2017 1:21 PM CDT Miscellaneous samples (specimen) TISSUE SPECIMEN FROM SKIN / Unknown 08/16/2017 08/20/2017 1:21 PM CDT Hiren Goetz MD LAB - PATHOLOGY/CYTO LOGY ORDERABLES DERMATOPATHOLOGY LABORATORY [facility] - Department of Dermatology [address] [facility] 5th Floor Lab B [address] [phone] documented in this encounter Visit Diagnoses Not on filedocumented in this encounter Care Teams Interventional Radiology Tech Relationship Specialty Start Date End Date Dave Stovall MD [address] [place] [address] PCP - General Internal Medicine 12/14/23 documented as of this encounter
--- OUTSIDE RECORDS SUMMARY | 2024-06-06 13:10 | XMS_ITS | Patient Health Summary ---
Author Organization [facility] Address [address] [place] [address] Care Team Providers Care Installation Superintendent Name Role Phone Dave Stovall MD Primary Care Provider [phone] Note from [facility],non-owned Affiliates and Associated Physician Practices is amultiple site organization consisting of ambulatory clinics and hospital sitesin [place], [place], [place] and [place]. This disclosure is being madepursuant to the Care Everywhere program and may not contain all information available regarding this patient. Last updated 18.[facility] Allergies No known active allergies Medications * Be aware that medications may not be up to date on this document. Alwaysverify current medications with the patient. * acetaminophen CR (Tylenol Arthritis Pain) 650 MG tablet Take 2 (two) tablets by mouth as needed * alendronate (Fosamax) 70 MG tablet(Started 10/02/2023) Take 1 (one) tablet by mouth every 7 days before meal * amitriptyline (Elavil) 10 MG tablet Take 2 (two) tablets by mouth once daily * buPROPion XL 24hr (Wellbutrin-XL) 150 MG tablet(Started 09/29/2023) Take 1 (one) tablet by mouth once daily * cetirizine (ZyrTEC) 10 MG tablet Take 1 (one) tablet by mouth at bedtime * Cholecalciferol 1.25 MG (37568 UT) Take 1 capsule by mouth once daily * clobetasol (Temovate) 0.05 % ointment(Started 09/07/2023) Apply to affected area 2 times daily as needed * HYDROcodone-acetaminophen (Coldwater) 5-325 MG tablet(Started 11/14/2023) Take 1 (one) tablet by mouth 4 times daily as needed For pain. * levocetirizine (Xyzal) 5 MG tablet Take 1 (one) tablet by mouth once daily * Magnesium Citrate 100 MG Take 1 (one) tablet by mouth at bedtime * Multiple Vitamins-Minerals (PRESERVISION AREDS PO) Take by mouth once daily * rosuvastatin (Crestor) 10 MG tablet Take 1 (one) tablet by mouth once daily * meloxicam (Mobic) 15 MG tablet(Started 12/14/2023) Take 1 (one) tablet by mouth once daily as needed with food 1 refill by 12/13/2024 Active Problems Problem Noted Date Diagnosed Date Lumbar stenosis 06/04/2022 Spondylolisthesis at L4-L5 level 10/27/2021 Social History Tobacco Use Types Packs/Day Years [...] Mass Index 28.15 12/14/2023 2:45 PM CDT Procedures * DERMATOPATHOLOGY(Performed 01/09/2019) * DERMATOPATHOLOGY(Performed 08/16/2017) * DERMATOPATHOLOGY(Performed 03/29/2017) * DERMATOPATHOLOGY(Performed 12/15/2016) * DERMATOPATHOLOGY(Performed 11/20/2013) * DERMATOPATHOLOGY(Performed 04/05/2013) * CYTOLOGY SMEAR PAP THIN PREP(Performed 07/09/1998) Results * DERMATOPATHOLOGY (01/09/2019 12:00 AM CDT) Only the most recent of6 resultswithin the time period is included. Case Report Dermatopathology Report ? Case: [id number] ? Authorizing Provider: ??Hiren Goetz MD ?Collected: ? 01/09/2019 12:00 AM ? Ordering Location: ? [facility] ?Received: ?01/10/2019 12:11 PM ? Pathologist: ? García Chung MD ? Specimen: ?Skin, left paranasal skin ? 9 2:34 PM CDT DERMATOPATHOLOGY LABORATORY Final Diagnosis Specimen A. SKIN, left paranasal skin: BENIGN VERRUCOUS KERATOSIS, INFLAMED (L82.1) 9 2:34 PM CDT DERMATOPATHOLOGY LABORATORY Clinical History R/O BCC. 9 2:34 PM CDT DERMATOPATHOLOGY LABORATORY Gross Description Specimen A: Received is one formalin filled container labeled with the patient's name and designated left paranasal skin. The specimen consists of a shave biopsy measuring [id number]. Jar 0. 9 2:34 PM CDT DERMATOPATHOLOGY LABORATORY Microscopic Description Specimen A. SKIN, left paranasal skin: Sections show hyperkeratosis, papillomatosis, hypergranulosis, and acanthosis. Inflammatory cells are present within the dermis. These histological findings can be seen in a verruca vulgaris or a seborrheic keratosis. 9 2:34 PM CDT DERMATOPATHOLOGY LABORATORY Disclaimer An external and internal positive and negative controls are appropriate for the histochemical, immunohistochemical and immunofluorescence stain(s) in this case (if any), except where stated explicitly. The performance characteristics of the stain(s) cited in this report were developed and its performance characteristic determined by the Dermatopathology Laboratory at [facility], directed by Dr. Tyree Chung. These tests need not be, and therefore are not, approved by the [place] Food and Drug Administration. The tests are used for clinical purposes. Billing Codes Specimen Charges Stain Charges 79507 1 9 2:34 PM CDT DERMATOPATHOLOGY LABORATORY Embedded Images 9 2:34 PM CDT DERMATOPATHOLOGY LABORATORY Pathology/Cytolog y TISSUE SPECIMEN FROM SKIN / Unknown 01/09/2019 01/10/2019 12:11 PM CDT Hiren Goetz MD LAB - PATHOLOGY/CYTO LOGY ORDERABLES DERMATOPATHOLOGY LABORATORY [facility] - Department of Dermatology [address] [facility], 5th Floor Lab B [address] [phone] * CYTOLOGY SMEAR PAP THIN PREP (07/09/1998 11:49 AM CONTINUITY MANAGER) Result CASE NUMBER [id number] Comment: ORDERING PHYSICIAN ??JESSICA VITALE SPECIMEN TYPE ?PAP Smear Date ? 07/09/1998 Procedure ?Cervical/Endocervical, 1 Vial for Thin Prep Received Specimen Adequacy ?Satisfactory for Evaluation Categorization ? Within Normal Limits Snomed. ?07/14/1998 1658 <1> Adon ? Brent Lai ([facility]) PAP Footnote ? The PAP smear is only a screening procedure to aid in the detection of cervical cancer and its precursors. ??It is not a diagnostic procedure and should not be used as the sole means to detect cervical cancer. ??Both false negative and false positive results have been experienced. MISCELLANEOUS SAMPLES / Unknown 07/09/1998 11:49 AM CONTINUITY MANAGER 07/10/1998 11:49 AM CONTINUITY MANAGER Historical Provider LAB - PATHOLOGY/C YTOLOGY ORDERABLES Care Teams Installation Superintendent Relationship Specialty Start Date End Date Dave Stovall MD [address] [place] [phone] PCP - General Internal Medicine 12/14/23
--- OUTSIDE RECORDS SUMMARY | 2024-06-06 13:10 | XMS_ITS | Encounter Summary ---
Author Organization [facility] Health Address [address] [facility] [place] [address] Care Team Providers Care Die Developer Name Role Phone Dave Stovall MD Primary Care Provider [phone] Encounter Details Date Type Department Care Team (Late st Contact Info) Description 01/10/2019 Lab Requisition [facility] DermPath Lab [address] [facility] [place] [phone] Hiren Goetz MD [address] [place] [address] Social History Tobacco Use Types Packs/Day Years [...] Priority Date/Time Associated Diagnosis Comments DERMATOPATHOLOGY Routine 01/09/2019 12:0 0 AM CDT documented in this encounter Results * DERMATOPATHOLOGY (01/09/2019 12:00 AM CDT) Case Report Dermatopathology Report ? Case: [id number] ? Authorizing Provider: ??Hiren Goetz MD ?Collected: ? 01/09/2019 12:00 AM ? Ordering Location: ? [facility] Derm[facility] Lab ?Received: ?01/10/2019 12:11 PM ? Pathologist: ? García Chung MD ? Specimen: ?Skin, left paranasal skin ? 2:34 PM CDT DERMATOPATHOLOGY LABORATORY Final Diagnosis Specimen A. SKIN, left paranasal skin: BENIGN VERRUCOUS KERATOSIS, INFLAMED (L82.1) 9 2:34 PM CDT DERMATOPATHOLOGY LABORATORY Clinical History R/O BCC. 9 2:34 PM CDT DERMATOPATHOLOGY LABORATORY Gross Description Specimen A: Received is one formalin filled container labeled with the patient's name and designated left paranasal skin. The specimen consists of a shave biopsy measuring 3b3k4pi. Jar 0. 2:34 PM CDT DERMATOPATHOLOGY LABORATORY Microscopic Description [...] characteristic determined by the Dermatopathology Laboratory at [facility], directed by Dr. Tyree Chung. These tests need not be, and therefore are not, approved by the [place] Food and Drug Administration. The tests are used for clinical purposes. Billing Codes Specimen Charges Stain Charges 45858 1 9 2:34 PM CDT DERMATOPATHOLOGY LABORATORY Embedded Images 9 2:34 PM CDT DERMATOPATHOLOGY LABORATORY Pathology/Cytolog y TISSUE SPECIMEN FROM SKIN / Unknown 01/09/2019 01/10/2019 12:11 PM CDT Hiren Goetz MD LAB - PATHOLOGY/CYTO LOGY ORDERABLES DERMATOPATHOLOGY LABORATORY [facility] - Department of Dermatology [address] [place] [address] [address] [phone] documented in this encounter Visit Diagnoses Not on filedocumented in this encounter Care Teams Die Developer Relationship Specialty Start Date End Date Dave Stovall MD [address] [place] [address] PCP - General Internal Medicine 12/14/23 documented as of this encounter
--- OUTSIDE RECORDS SUMMARY | 2024-06-06 13:11 | XMS_ITS | Clinical Summary ---
Author Organization [facility] Address [address] [place] [address]. [place] [address] [place] [address] Care Team Providers Care Primary Operator Name Role Phone Dave Stovall MD Primary Care Provider [phone] Allergies No known active allergies Medications acetaminophen CR (TYLENOL) 650 MG Tab CR 8 hr tablet Take 1,300 mg by mouth as needed. Active alendronate (FOSAMAX) 70 MG tablet Take 70 mg by mouth once a week. Has not yet started as of 05/31/22 2 Active ALPRAZolam (XANAX) 0.25 MG tablet Take 1 tablet by mouth as needed. 2 Active amitriptyline (ELAVIL) 10 MG tablet Take 2 tablets by mouth nightly. 3 Active buPROPion XL (WELLBUTRIN XL) 150 MG 24 hr tablet Take 1 tablet by mouth daily. 3 Active Calcium Carbonate-Vitam in D (CALCIUM-CARB 600 + D OR) Take 1 tablet by mouth daily. Active cholecalciferol (VITAMIN D-3) 1.25 MG (71661 UT) capsule Take 1 capsule by mouth daily. Active cetirizine (ZYRTEC) 10 MG tablet Take 1 tablet by mouth nightly. Active Magnesium Citrate 100 MG Tab Take 1 tablet by mouth nightly. Active rosuvastatin (CRESTOR) 10 MG tablet Take 10 mg by mouth daily. 2 Active FIBER ADULT GUMMIES OR Take 1 Application by mouth 2 (two) times a day. Takes 2 in Am AND 1 hs Active senna-docusate (SENOKOT-S) 8.6-50 MG tablet Take 1 tablet by mouth daily. 60 tablet 1 3 Active oxyCODONE-aceta minophen (PERCOCET) 5-325 MG tabletIndicatio ns:Acute Pain < 7 Day Supply,postop Take 1-2 tablets by mouth every 6 (six) hours as needed for Pain. Indications: Acute Pain < 7 Day Supply, postop 55 tablet 3 Active Active Problems Problem Noted Date Diagnosed Date Lumbar stenosis 06/04/2022 Family History Medical History Relation Comments Heart Disease Brother Diabetes Father Cancer Mother breast Relation Status Comments Brother Alive Father Mother Social History Tobacco Use Types Packs/Day Years Used Date Smoking Tobacco: Never Smokeless Tobacco: Never Tobacco Cessation:Counseling Given: Not Answered Alcohol Use Standard Drinks/Week Comments Yes 8.3 (1 standard drink = 0.6 oz p ure alcohol) 4-5 times/week Comments No Sex and Gender Information Value Date Recorded Sex Assigned at Not on file Legal Sex Female 3:17 PM MULTI PURPOSE MACHINE OPERATOR Gender Identity Not on file Sexual Orientation Not on file Last Filed Vital Signs Vital Sign Reading Time Taken Comments Blood Pressure 105/59 06/06/2022 11:40 AM MULTI PURPOSE MACHINE OPERATOR Pulse 89 06/06/2022 11:40 AM MULTI PURPOSE MACHINE OPERATOR Temperature 37.3 ??C (99.1 ??F) 06/06/2022 1 1:40 AM MULTI PURPOSE MACHINE OPERATOR Respiratory Rate 18 06/06/2022 4:42 AM MULTI PURPOSE MACHINE OPERATOR Oxygen Saturation 96% 06/06/2022 11: 40 AM MULTI PURPOSE MACHINE OPERATOR Inhaled Oxygen Concentration - - Weight 73.9 kg (162 lb 14.7 oz) 06/06/2022 4:42 AM MULTI PURPOSE MACHINE OPERATOR Height 163.8 cm (5' 4.5 ) 06/03/2022 6:30 AM MULTI PURPOSE MACHINE OPERATOR Body Mass Index 27.53 06/03/2022 6:30 AM MULTI PURPOSE MACHINE OPERATOR Plan of Treatment Health Maintenance Due Date Last Done Comments Hepatitis C 1963 DTaP, Tdap and Td Vaccines (1 - Tdap) 1965 Zoster Vaccines (1 of 2) 1996 Annual Medicare Wellness Visit 10/10/2011 Dexa Scan (General) 10/10/2011 Pneumococcal Vaccine: 65+ Years (1 of 1 - PCV) 10/10/2011 RSV Immunization or 60+ Years (1 - 1-dose 75+ series) 2021 COVID-19 Vaccine ( season) 2024 03/02/2022, 10/01/2021, 03/29/2021, Additional history exists Influenza Adult (#1) 2024 02/22/2019, 02/01/2017, 03/09/2016, Additional history exists Meningococcal Vaccine Aged Out No [place]vey [place] eligible based on patient's age to complete this topic RSV Immunizations Under 20 Months Aged Out No longer eligible based on patient's age to complete this topic Goals Goal Patient Goal Type Associated Problems Recent Progress Patient-Stated? Author Health - patient able to perform ADLs independently Lifestyle No Shahnaz Galarza, CABINET PROFESSIONALsocial welfare research worker Devices Implanted Type Area Electronic Transaction Implementer Device Identifier Shelf Expiration Date Model / Serial / Lot New Age Gregor Implanted:Qty: 2 on 06/03/2022 by Fuad Gross MD at [facility] Gregor [id number] / / Description:From sterile kyaw salud tray 6.5x55 Screw Implanted:Qty: 2 on 06/03/2022 by Fuad Gross MD at [facility] N/A: Spine Lumbar [id number] / / 6.5x50 Screw Implanted:Qty: 2 on 06/03/2022 by Fuad Gross MD at [facility] N/A: Spine Lumbar [id number] / / 6.5x45 Screw Implanted:Qty: 2 on 06/03/2022 by Fuad Gross MD at [facility] N/A: Spine Lumbar [id number] / / Set Screw Implanted:Qty: 6 on 06/03/2022 by Fuad Gross MD at [facility] N/A: Spine Lumbar [id number] / / N*G Head Implanted:Qty: 6 on 06/03/2022 by Fuad Gross MD at [facility] N/A: Spine Lumbar [id number] / / Interbody Cage Implanted:Qty: 1 on 06/03/2022 by Fuad Gross MD at [facility] N/A: Spine Lumbar [id number] 04/27/2023 [id number] / / [id number] Insurance [employer]ET[employer] Advance Directives Documents on File Type Date Recorded Patient Publicity Agent Expl anation Power of Associate Professor Of Law 06/07/2022 02/25/15 P OA FOR HEALTH CARE * Full Code (Latest Code Status on File) Date Activated Date Inactivated Comments 06/03/2022 3:16 PM 06/06/2022 4:28 PM Care Teams Primary Operator Relationship Specialty Start Date End Date Dave Stovall MD [address] - [facility] [address] [place] [address] PCP - General INTERNAL MEDICINE 03/23/22
--- OUTSIDE RECORDS SUMMARY | 2024-06-06 13:11 | XMS_ITS | Continuity of Care Document ---
Author Organization [facility] Address [address] [place] [address] [place] [address] Phone Care Team Providers Care Herbologist Name Role Phone [facility] Unavailable Unavail able Chichi Esquivel Unavailable Unavailable Procedures Procedure Date Progressive Lens, Hi Index Post-op Follow-up Visit Frames Deluxe Progressive Lens, Polycarb Anti-reflective Coating Tax - Medical Eye Exam & Treatment Refraction Eye Exam & Treatment Refraction Office/outpatient Visit, Est Advance Directives Directive Yes / No Effective Date File Name No Information Encounters Encounter Description Practice Location Reason(s) For Visit Diagnoses Date Provider Providers Copied on Encounter [facility], [address] [place] [address] [address], [place], [place], [id number], [place] tel:[phone] [facility] No Information 4- 0 [facility] . [address] [facility], [facility] [address], [place], [address], [place]. tel:[phone] Referring Provider: Ilsa Rea, [address], [place], [address]. tel:[phone] fuller Provider: Chichi Esquivel, [address] [place] [address], [address]. tel:[phone] [facility], [address] [place] [address] [address], [place], [place], [id number], [place] tel:[phone] SEC [facility] No Information 5-201 0 Maria Elena Rosenbaum. [address] [facility] , [address], [place], [place], [facility] [place], [place]. tel:[phone] [facility] Eye [facility], [address], [place], [place], [address], [place] tel:[phone] [facility] No Information -201 0 [facility] . [address] [facility], [address], [place], [place], [address], [place]. tel:[phone] Referring Provider: Ilsa Rea, [address] [facility] [address], [place], [place], [facility] [place]. tel:[phone] g Provider: Viviana Mae, [address] [place], [place], [facility] [place]. tel:[phone] [facility], [address], [place], [place], [address], [place] tel:[phone] [facility] No Information 2-201 0 Maria Elena Rosenbaum. [address] [facility] , [address], [place], [facility] [place]. tel:[phone] [facility], [address], [place], [place], [address], [place] tel:[phone] [facility] No Information 0 8-200 8 Maria Elena Rosenbaum. [address] [facility] , [address], [place], [facility] [place], [place]. tel:[phone] Office/outpat ient Visit, Est [facility], [address] [place] [address] [address], [place], [place], [address], [place] tel:[phone] [facility] No Information Mar-0 1-200 7 Ramos OD Marlon. [address] , [address], [place], [facility] [place], [place]. tel:[phone] Family History Family Member Type Diagnosis Age At Onset No Information Payers Payer name Insurance type Covered constitution party ID Authoriza tion(s) No Information Social History Type Description Quantity Date Captured Comments Sex Female Smoking Status No Information Chief Complaint And Reason For Visit No Information Reason For Referral Reason For Referral No Information History Of Present Illness Encounter Date Complaint History Of Prese nt Illness No Information Functional Status Date Functional Assessmen t No Information Instructions Date Instruction Additional Infor mation No Information Assessments Type Assessment Date No Information Patient Care Teams Name Effective Dates (start - stop) Status Members No Information
--- OUTSIDE RECORDS SUMMARY | 2024-06-06 13:11 | XMS_ITS | Clinical Summary ---
Author Organization [facility] Address [address] [place] [address] Care Team Providers Care Heating Worker Name Role Phone Dave Stovall MD Primary Care Provider [phone] Tiago Gomez DPT Unavailable [phone] Allergies No known active allergies Medications buPROPion SR (ZYBAN) 150 mg 12 hr tablet Take 1 tablet (150 mg total) by mouth 2 (two) times a day Active rosuvastatin (CRESTOR) 10 mg tablet Take 1 tablet (10 mg total) by mouth daily Active magnesium citrate 100 mg tablet Take by mouth Active amitriptyline (ELAVIL) 10 mg tablet Take 2 tablets (20 mg total) by mouth nightly Active vitamins A,C,E-zinc-wilfredo er 7,160-113-100 rovw-qz-tjbv tablet,delayed release (DR/EC) Take by mouth daily Active levocetirizine (XYZAL) 5 mg tablet Take 1 tablet (5 mg total) by mouth every evening Active Active Problems Problem Noted Date Diagnosed Date Spondylolisthesis at L4-L5 level 10/27/2021 Assessment & Plan (01/04/2022 3:13 PM CDT): Mrs. Gomez wishes to delay consideration of any surgical treatment until after a trip to [place] in the fall. If symptoms worsen and she wishes to proceed with surgery, she would benefit from L3-L5 laminectomy and fusion. Patient to call the office when she is ready to schedule. Assessment & Plan (10/27/2021 3:41 PM CDT): Ms. Gomez has a grade 1 spondylolisthesis of L4 on L5 with severe central canal and bilateral lateral recess stenosis at L4-5 greater than L3-4. She has congenital lumbar stenosis. She also has a disc bulge at L1-2 which is asymptomatic. We discussed all options including medications, therapy, chiropractic treatment, injections and surgery. She wishes to delay consideration of any surgical treatment until after a trip to [place] in the fall. I plan to see her back in 3 months time with flexion-extension lumbar spine films at that time. If symptoms worsen and she wishes to proceed with surgery, she would benefit from L3-L5 laminectomy and fusion. Encounters Date Type Department Care Team Description 03/07/2024 11:00 AM CDT Office Visit [facility] [address] [place] [address] [address] [place] [address] Marysol Sadler MD Well woman exam with routine gynecological exam (Primary Dx); Screening for human papillomavirus (HPV); Screening for cervical cancer from Last 3 Months Surgical History Surgery Date Site/Laterality Comments FOOT SURGERY Foot Surgery - (Added by TW Conv) MS TONSILLECTOMY PRIMARY/SECONDARY <AGE 13 Tonsillectomy - (Added by TW Conv) MS TOTAL ABDOMINAL HYSTERECT W/WO RMVL TUBE OVARY Hysterectomy - (Added by TW Conv) HYSTERECTOMY 05/15/2015 - 05/14/2016 Uterine cancer treatment FOOT NEUROMA SURGERY 05/15/2009 - 05/14/2010 Left CATARACT EXTRACTION October 2015 Medical History Medical History Date Comments Personal history of other di seases of the musculoskeletal system and connective tissue History of low back pain - (Added by TW Conv) Cervicalgia Neck pain - (Add ed by TW Conv) Pure hypercholesterolemia High c holesterol - (Added by TW Conv) Hemorrhagic condition (CMS/HCC) (HCC) Bleeding disorder - (Added by TW Conv) Postmenopausal bleeding Post-men opause bleeding - (Added by TW Conv) Uterine cancer (CMS/HCC) (HCC) 07/18/2015 Cataract October 2017 Family History Medical History Relation Name Comments Uterine cancer Cousin Family histor y of malignant neoplasm of uterus - (Added by TW Conv) Diabetes Father Cirilo Gomez Family hist ory of diabetes mellitus - (Added by TW Conv) Hearing loss Father Cirilo Goemz Heart disease Father Cirilo Gomez Family his tory of cardiac disorder - (Added by TW Conv) Hearing loss Maternal Grandmother Jazmyne Pace Arthritis Mother Chiquita Gomez Cancer Mother Chiquita Gomez Hearing loss Mother Chiquita Gomez Hearing loss Mother's Sister Anel Torres Relation Name Status Comments Cousin Father Cirilo Gomez Maternal Grandmother Jazmyne Pace Mother Chiquita Gomez Mother's Sister Anel Torres Social History Tobacco Use Types Packs/Day Years Used Date Smoking Tobacco: Never Smokeless Tobacco: Never Tobacco Cessation:Counseling Given: No Alcohol Use Standard Drinks/Week Comments Yes 0 (1 standard drink = 0.6 oz pur e alcohol) frequently AUDIT-C Answer Date Recorded Q1: How often do you have a drink containing alc ohol? 2-3 times a week 03/07/2024 Q2: How many drinks containi ng alcohol do you have on a typical day when you are drinking? 1 or 2 03/07/2024 Q3: How often do you have si x or more drinks on one occasion? 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 Gender Identity Female 10/23/2018 7:59 AM CDT Sexual Orientation Not on file Obstetrics History Para Term AB IAB SAB Ectopic Multiple Livin g Live Births 0 0 0 0 0 0 0 0 0 0 0 Last Filed Vital Signs Vital Sign Reading Time Taken Comments Blood Pressure 134/82 03/07/2024 11:11 AM CDT Pulse 82 10/27/2021 2:26 PM CDT Temperature - - Respiratory Rate 14 10/27/2021 2:26 PM CDT Oxygen Saturation 98% 12/06/2016 3:09 PM CDT Inhaled Oxygen Concentration - - Weight 75.3 kg (166 lb) 03/07/2024 11:11 AM CDT Height 162.6 cm (5' 4 ) 03/07/2024 11:11 AM CDT Body Mass Index 28.49 03/07/2024 11:11 AM CDT Plan of Treatment Health Maintenance Due Date Last Done Comments Fall Risk Assessment 1945 Hepatitis C Screening 1945 Osteoporosis Screening-Bone Density Scan 1945 DTaP/Tdap/Td Vaccine (1 - Tdap) 1957 Hepatitis B Screening 1964 Zoster Vaccine (1 of 2) 1996 Pneumococcal vaccine 65+ (1 of 1 - PCV) 10/10/2011 03/24/2014, 02/12/2014 Depression Screening 10/27/2022 10/27/2021 Influenza Vaccine (#1) 2024 2, 02/22/2019, 02/01/2017, Additional history exists Well Visit 65+ 03/07/2025 03/07/2024 Procedures Procedure Name Priority Date/Time Associated Diagnosis Comments IGP, APT HPV,RFX 16/18,45 Routine 03/07/2024 2:19 AM CDT Screening for human papillomavirus (HPV) Screening for cervical cancer from Last 3 Months Results * IGP, Apt HPV,rfx 16/18,45 (03/07/2024 2:19 AM CDT) Clinical indication Comment [facility] - 01 Comment:NEGATIVE FOR INTRAEP ITHELIAL LESION OR MALIGNANCY. Specimen adequacy: Comment [facility] - 01 Comment: Satisfactory for evaluation. ??Endocervical and/or squamous metaplastic cells (endocervical component) are present. Clinician provided ICD10 Comment [facility] - 01 Comment: Z11.51 Z12.4 Performed by Comment [facility] - 01 Comment:Celia Sewell, Cyto technologist (ASCP) . . [facility] - 01 Note: Comment [facility] - 01 Comment: The Pap smear is a screening test designed to aid in the detection of premalignant and malignant conditions of the uterine cervix. ??It is not a diagnostic procedure and should not be used as the sole means of detecting cervical cancer. ??Both false-positive and false-negative reports do occur. Test methodology Comment [facility] - 01 Comment: This liquid based ThinPrep(R) pap test was screened with the use of an image guided system. HPV Aptima Negative Negative [facility] 02 Comment: This nucleic acid amplification test detects fourteen high-risk HPV types (16,18,31,33,35,39,45,51,52,56,58,59,66,68) without differentiation. Vaginal 03/07/2024 2:19 AM CDT 03/07/2024 Narrative [facility] - 03/13/2024 3:09 PM CDT Performed at: ??01 - [facility] [address] ??[id number] Log Chipper: Leonarda Alegria MD, Phone: ??[phone] Performed at: ??02 - [facility] [address] ??[id number] Log Chipper: Leonarda Alegria MD, Phone: ??[phone] Specimen Comment: No. of containers..01 ThinPrep Vial us Marysol Sadler MD LAB PATHOLOGY ORDERABLES Final Result Performing Organization Address City/State/[facility] Co de Phone Number [facility] - 01 [facility] 02 from Last 3 Months Insurance MEDICARE SOLUTIONS MEDICARE SOLUTIONS [facility] Care Teams Heating Worker Relationship Specialty Start Date End Date Dave Stovall MD [address] [facility] [address] [place] [address] PCP - General 08/31/16 Tiago Gomez DPT [address] [facility] [address] [place] [address] Physical Therapist Physical Therapy 03/11/21
--- OUTSIDE RECORDS SUMMARY | 2024-06-06 13:11 | XMS_ITS | Referral Summary ---
Author Organization [facility] Address [address] [place] [address] Care Team Providers Care Belt Brander Name Role Phone Dave Stovall MD Primary Care Provider [phone] Tiago Gomez DPT Unavailable [phone] Encounters Date Type Department Care Team Description 03/07/2024 11:00 AM CDT Office Visit [facility] [address] [facility] Medical Office Building [address] [place] [address] Marysol Sadler MD Well woman exam with routine gynecological exam (Primary Dx); Screening for human papillomavirus (HPV); Screening for cervical cancer from Last 3 Months Allergies No known active allergies Medications buPROPion [...] mouth nightly Active vitamins A,C,E-zinc-wilfredo er 7,160-113-100 hszq-pl-bdqu tablet,delayed release (DR/EC) Take by mouth daily Active levocetirizine (XYZAL) 5 mg tablet Take 1 tablet (5 mg total) by mouth every evening Active Active Problems Problem Noted Date Diagnosed Date Spondylolisthesis at L4-L5 level 10/27/2021 Assessment & Plan (01/04/2022 3:13 PM CDT): Mrs. Gomez wishes to delay consideration of any surgical treatment until after a trip to [place] in the fall. If symptoms worsen and [...] surgical treatment until after a trip to [place] in the fall. I plan to see her back in 3 months time with flexion-extension lumbar spine films at that time. If symptoms worsen and she wishes to proceed with surgery, she would benefit from L3-L5 laminectomy and fusion. 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 of containers..01 ThinPrep Vial us Marysol Sadler MD LAB PATHOLOGY ORDERABLES Final Result [facility] - 01 [facility] 02 from Last 3 Months Insurance MEDICARE SOLUTIONS MEDICARE SOLUTIONS [employer] MEDICARE Care Teams Belt Brander Relationship Specialty Start Date End Date Dave Stovall MD [address] [facility] [address] [facility] [address] INTERNAL MEDICINE [place], [place] [id number] PCP - General 08/31/16 Tiago Gomez DPT [address] [facility] [address] [place] [address] Physical Therapist Physical Therapy 03/11/21
== END 2024-06-03 12:27 | disposition home or self-care (01) ==
LOC: ANHIMG 12:31
PROVIDERS: PCP Internal Medicine; Visit Provider Internal Medicine
DX: M85.80 Other specified disorders of bone density and structure, unspecified site (principal); Z78.0 Asymptomatic menopausal state
CPT/HCPCS: 77080

== ENCOUNTER 2024-09-26 15:37 | Outpatient (CLI) | payer MEDICARE, SELFPAY ==
--- NOTE | ~2024-09-26 | MM_ITS ---
EXAMINATION: MM screening claudia BI w akin HISTORY: Screening TECHNIQUE: Craniocaudal and mediolateral oblique 3-D tomosynthesis images were obtained and synthetic 2-D images were generated. CAD analysis was submitted and interpreted. COMPARISON: Comparison to multiple prior studies sequentially, with oldest reviewed study dated 11/06. BREAST PARENCHYMAL COMPOSITION: Not Dense: The breasts are almost entirely fatty. FINDINGS: There is no evidence of suspicious mass, calcification, or architectural distortion to sugg est malignancy in either breast. There has been no suspicious interval change. IMPRESSION: 1. No mammographic evidence of malignancy. 2. Recommend routine screening mammography in one year. BI-RADS Category 1: Negative Reviewed, dictated and finalized at location A.
== END 2024-09-26 15:38 | disposition home or self-care (01) ==
LOC: MICIMG 15:38
PROVIDERS: PCP Internal Medicine
DX: Z12.31 Encounter for screening mammogram for malignant neoplasm of breast (principal)
CPT/HCPCS: 77063; 77067

== ENCOUNTER 2024-11-11 16:48 | Outpatient (CLI) | payer MEDICARE, SELFPAY ==
--- OUTSIDE RECORDS SUMMARY | 2024-11-11 16:51 | XMS_ITS | Continuity of Care Document ---
Author Organization [facility] Address [address] [place] [address] [place] [address] Phone Care Team Providers Care Warehouse Receiver Name Role Phone [facility] Unavailable [...] Diagnoses Date Provider Providers Copied on Encounter [facility], [address] [place] [address] [address], [place], [place], [address], [place] tel:[phone] [facility] No Information 4- 0 [facility] . [address] [facility], [place], [address], [place]. tel:[phone] Referring Provider: Ilsa Rea, [address], [place], [address]. tel:[phone] fuller Provider: Chichi Esquivel, [address] [place] [address], [address]. tel:[phone] [facility], [address] [place] [address] [address], [place], [place], [address], [place] tel:[phone] [facility] No Information 5-201 0 Maria Elena Rosenbaum. [address] [facility] , [address], [place], [place], [facility], [place]. tel:[phone] [facility] Eye [facility], [address], [place], [place], [address], [place] tel:[phone] [facility] No Information -201 0 [facility] . [address] [facility], [address], [place], [place], [address], [place]. tel:[phone] Referring Provider: Ilsa Rea, [address] [facility] [address], [place], [place], [facility]. tel:[phone] g Provider: Viviana Mae, [address] [place], [place], [facility]. tel:[phone] 2069 [facility], [address], [place], [place], [address], [place] tel:[phone] [facility] No Information 2-201 0 Maria Elena Rosenbaum. [address] [facility] , [address], [place], [place], [facility], [place]. tel:[phone] [facility], [address], [place], [place], [address], [place] tel:[phone] [facility] No Information 0 8-200 8 Maria Elena Rosenbaum. [address] [facility] , [address], [place], [place], [facility], [place]. tel:[phone] Office/outpat ient Visit, Est [facility], [address] [place] [address] [address], [place], [place], [address], [place] tel:[phone] [facility] No Information Mar-0 1-200 7 Ramos OD Marlon. [address], [place], [place], [facility], [place]. tel:[phone] Family History Family Member Type Diagnosis Age At Onset No Information Payers Payer name Insurance type Covered alliance party ID Authoriza tion(s) No Information Social [...]
--- OUTSIDE RECORDS SUMMARY | 2024-11-11 16:51 | XMS_ITS | Continuity of Care Document ---
Author Organization [facility] Address [address] [address] Insurance Providers Payer Plan Claims Address Claims Phone Policy Number Group Number Relation Employer Guarantor Name Guarantor Guarantor Address Guarantor Phone [facility] MEDIC ARE PAWEL BALDERAS [address] [address], [place] [address] [id number] Donavon Gomez 1945 [address] [place] [address] MEDIC ARE PAWEL BALDERAS [address], [place] [address] tel:[phone] Self Milka Gomez 1945 [address] [place] [address] [address] [employer] ARE [address] [address], [place] [address] tel:[phone] [id number] Donavon Gomez 1945 [address] [place] [address] Problems Condition ICD9 code ICD10 [...]
--- OUTSIDE RECORDS SUMMARY | 2024-11-11 16:51 | XMS_ITS | Clinical Summary ---
Author Organization [facility] Address [address] [place] [address] Care Team Providers Care Vp Lab Name Role Phone Dave Stovall MD Primary Care Provider [phone] Allergies No known active allergies Medications acetaminophen [...] daily. 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 Gender Identity Not on file Sexual Orientation Not on file Last Filed Vital Signs Vital Sign Reading Time Taken Comments Blood Pressure 105/59 06/06/2022 11:40 AM CLAY PIGEON LOADER Pulse 89 06/06/2022 11:40 AM CLAY PIGEON LOADER Temperature 37.3 C (99.1 F) 06/06/2022 11:40 AM CLAY PIGEON LOADER Respiratory Rate 18 06/06/2022 4:42 AM CLAY PIGEON LOADER Oxygen Saturation 96% 06/06/2022 11: 40 AM CLAY PIGEON LOADER Inhaled Oxygen Concentration - - Weight 73.9 kg (162 lb 14.7 oz) 06/06/2022 4:42 AM CLAY PIGEON LOADER Height 163.8 cm (5' 4.5) 06/03/2022 6:30 AM CLAY PIGEON LOADER Body Mass Index 27.53 06/03/2022 6:30 AM CLAY PIGEON LOADER Plan of Treatment Health Maintenance Due Date Last Done Comments Hepatitis C 1963 DTaP, Tdap and Td Vaccines (1 - Tdap) 1965 Pneumococcal Vaccine: 50+ Years (1 of 1 - PCV) 1996 Zoster Vaccines (1 of 2) 1996 Annual Medicare Wellness Visit 10/10/2011 Dexa Scan (General) 10/10/2011 RSV Immunization or 60+ Years (1 - 1-dose 75+ series) 2021 COVID-19 Vaccine ( season) 2024 03/02/2022, 10/01/2021, 03/29/2021, Additional history exists Meningococcal B Vaccine Aged Out No l onger eligible based on patient's age to complete this topic Meningococcal Vaccine Aged Out No [place] eligible based on patient's age to complete this topic RSV Immunizations Under 20 Months Aged Out No longer eligible based on patient's age to complete this topic Goals Goal Patient Goal Type Associated Problems Recent Progress Patient-Stated? Author Health - patient able to perform ADLs independently Lifestyle No Shahnaz Galarza, ANIMAL GENETICISTip technology transactions attorney Devices Implanted Type Area General Internal Medicine Physician Device Identifier Shelf Expiration Date Model / Serial / Lot New Age Gregor Implanted:Qty: 2 on 06/03/2022 by Fuad Gross MD at [facility] Gregor [id number] / / Description:From sterile kyaw salud tray 6.5x55 Screw Implanted:Qty: 2 on 06/03/2022 by Fuad Gross MD at [facility] N/A: Spine Lumbar [id number] / / 6.5x50 Screw Implanted:Qty: 2 on 06/03/2022 by Fuad Gross MD at [facility] N/A: Spine Lumbar [id number] / / 6.5x45 Screw Implanted:Qty: 2 on 06/03/2022 by Fuad Gross MD at [facility] N/A: Spine Lumbar [id number] / / Set Screw Implanted:Qty: 6 on 06/03/2022 by Fuad Gross MD at [facility] N/A: Spine Lumbar [id number] / / N*G Head Implanted:Qty: 6 on 06/03/2022 by Fuad Gross MD at [facility] N/A: Spine Lumbar [id number] / / Interbody Cage Implanted:Qty: 1 on 06/03/[facility] N[facility]A: Spine Lumbar [id number] 04/27/2023 [id number] / / [id number] Insurance [employer] Advance Directives Documents on File Type Date Recorded Patient Sheet Metal Fabricator Expl anation Power of Ticket Counter 06/07/2022 02/25/15 P OA FOR HEALTH CARE * Full Code (Latest Code Status on File) Date Activated Date Inactivated Comments 06/03/2022 3:16 PM 06/06/2022 4:28 PM Care Teams Vp Lab Relationship Specialty Start Date End Date Dave Stovall MD [address] [place] [address] PCP - General INTERNAL MEDICINE 03/23/22
--- OUTSIDE RECORDS SUMMARY | 2024-11-11 16:51 | XMS_ITS | Encounter Summary ---
Author Organization [facility] Address [address] [facility] [place] [address] Care Team Providers Care Cracking Still Operator Name Role Phone Dave Stovall MD Primary Care Provider [phone] Encounter Details Date Type Department Care Team (Late st Contact Info) Description 08/20/2017 Lab Requisition [facility] DermPath Lab [address] [facility] [place] [id number] Hiren Goetz MD [address] [place] [address] Social History Tobacco Use Types Packs/Day Years Used Date Smoking Tobacco: Never Assessed Comments Unknown Sex and Gender Information Value Date Recorded Sex Assigned at Female 12/17/2023 11:42 AM CDT 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 Gender Identity Female 12/17/2023 11:42 AM CDT Sexual Orientation Lesbian 12/17/2023 11 :42 AM CDT documented as of this encounter Plan of Treatment Not on file documented as of this encounter Procedures Procedure Name Priority Date/Time Associated Diagnosis Comments DERMATOPATHOLOGY Routine 08/16/2017 12:0 0 AM CDT documented in this encounter Results * DERMATOPATHOLOGY (08/16/2017 12:00 AM CDT) Case Report Dermatopathology Report Case: [id number] Authorizing Provider: Hiren Goetz MD Collected: 08/16/2017 12:00 AM Pathologist: Liliana Downey MD Received: 08/20/2017 01:21 PM Specimens: A) - Skin, left upper back B) - Skin, left mid back 3:52 PM T DERMATOPATHOLOGY LABORATORY Final Diagnosis Specimen A. SKIN, left upper back: LICHEN PLANUS-LIKE KERATOSIS (BENIGN LICHENOID KERATOSIS) (L82.1) PRESENT AT MARGIN Specimen B. SKIN, left mid back: DERMAL SCAR (L90.5) PRESENT AT MARGIN 3:52 PM T DERMATOPATHOLOGY LABORATORY at 1552 CDT Clinical History A-B: R/O BCC 3:52 PM CDT DERMATOPATHOLOGY LABORATORY Gross Description Specimen: A: Received is one formalin filled container labeled with the patient's name and designated left upper back. The specimen consists of a shave biopsy measuring 14u89v4 mm, inked. Jar 0. Specimen: B: Received is one formalin filled container labeled with the patient's name and designated left mid back. The specimen consists of a shave biopsy measuring 28d62b5 mm, inked. Jar 0. 3:52 PM T DERMATOPATHOLOGY LABORATORY Microscopic Description Specimen A. SKIN, [...] the margin of the specimen. 3:52 PM T DERMATOPATHOLOGY LABORATORY Disclaimer An external and internal positive and negative controls are appropriate for the histochemical, immunohistochemical and immunofluorescence stain(s) in this case (if any), except where stated explicitly. The performance characteristics of the stain(s) cited in this report were developed and its performance characteristic determined by the Dermatopathology Laboratory at [facility]. These tests need not be, and therefore are not, approved by the [place] Food and Drug Administration. The tests are used for clinical purposes. Billing Codes Specimen Charges Stain Charges 57300 93727 1 1 3:52 PM CDT DERMATOPATHOLOGY LABORATORY Embedded Images 04/08/201 8 3:52 PM CDT DERMATOPATHOLOGY LABORATORY Pathology/Cytology TISSUE SPECIMEN FROM SKIN / Unknown 08/16/2017 08/20/2017 1:21 PM CDT Miscellaneous samples (specimen) TISSUE SPECIMEN FROM SKIN / Unknown 08/16/2017 08/20/2017 1:21 PM CDT Hiren Goetz MD LAB - PATHOLOGY/CYTOLOGY ORD ERABLES Final Result DERMATOPATHOLOGY LABORATORY [facility] - Department of Dermatology [address] [place] [address], 5th Floor Lab [address] [phone] documented in this encounter Visit Diagnoses Not on filedocumented in this encounter Care Teams Cracking Still Operator Relationship Specialty Start Date End Date Dave Stovall MD [address] [place] [phone] PCP - General Internal Medicine 12/14/23 documented as of this encounter
--- OUTSIDE RECORDS SUMMARY | 2024-11-11 16:51 | XMS_ITS | Clinical Summary ---
Author Organization [facility] Address [address] [place] [address] Care Team Providers Care Estate Tax Examiner Name Role Phone Dave Stovall MD Primary Care Provider [phone] Tiago Gomez DPT Unavailable [phone] Allergies No known active allergies Medications buPROPion [...] mouth nightly Active vitamins A,C,E-zinc-wilfredo er 7,160-113-100 uswc-ip-tsaf tablet,delayed release (DR/EC) Take by mouth daily Active levocetirizine (XYZAL) 5 mg tablet Take 1 tablet (5 mg total) by mouth every evening Active Active Problems Problem Noted Date Diagnosed Date Spondylolisthesis at L4-L5 level 10/27/2021 Assessment & Plan (01/04/2022 3:13 PM CDT): Mrs. Gomez wishes to delay consideration of any surgical treatment until after a trip to [place] in the fall. If symptoms worsen and [...] surgical treatment until after a trip to [place] in the fall. I plan to see her back in 3 months time with flexion-extension lumbar spine films at that time. If symptoms worsen and she wishes to proceed with surgery, she would benefit from L3-L5 laminectomy and fusion. Surgical History Surgery Date Site/Laterality Comments FOOT SURGERY Foot Surgery - (Added by TW Conv) [place] TONSILLECTOMY PRIMARY/SECONDARY <AGE 13 Tonsillectomy - (Added by TW Conv) [place] TOTAL ABDOMINAL HYSTERECT W/WO RMVL TUBE OVARY [...] - (Added by TW Conv) Hemorrhagic condition Bleeding d isorder - (Added by TW Conv) Postmenopausal bleeding Post-men opause bleeding - (Added by TW Conv) Uterine cancer (HCC) 07/18/2015 Cataract October 2017 Family History Medical History Relation Name Comments Uterine cancer Cousin Family histor y of malignant neoplasm of uterus - (Added by TW Conv) Diabetes Father Cirilo Gomez Family hist ory of diabetes mellitus - (Added by TW Conv) Hearing loss Father Cirilo Gomez Heart disease Father Cirilo Gomez Family his tory of cardiac disorder - (Added by TW Conv) Hearing loss Maternal Grandmother Jazmyne Pace Arthritis Mother Chiquita Goemz Cancer Mother Chiquita Gomez Hearing loss Mother [...] on file 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 Gender Identity Female 10/23/2018 7:59 AM CDT [...] 11:11 AM CDT Height 162.6 cm (5' 4) 03/07/2024 11:11 AM CDT Body Mass Index 28.49 03/07/2024 11:11 AM CDT Plan of Treatment Health Maintenance Due Date Last Done Comments Fall Risk Assessment 1945 Hepatitis C Screening 1945 Osteoporosis Screening-Bone Density Scan 1945 DTaP/Tdap/Td Vaccine (1 - Tdap) 1957 Hepatitis B Screening 1964 Pneumococcal vaccine 65+ (1 of 1 - PCV) 1996 03/24/2014, 02/12/2014 Zoster Vaccine (1 of 2) 1996 Depression Screening 10/27/2022 10/27/2021 Influenza Vaccine (Season Ended) 2025 01/12/2022, 02/22/2019, 02/01/2017, Additional history exists Well Visit 65+ 03/07/2025 03/07/2024 Insurance [facility] MEDICARE ADVANTAGE UHC MEDICARE ADVANTAGE [place] [address] Care Teams Estate Tax Examiner Relationship Specialty Start Date End Date Dave Stovall MD [address] [facility] [address] [facility] [address] [place] [address] PCP - General 08/31/16 Tiago Gomez DPT [address] [facility] [address] [place] [address] Physical Therapist Physical Therapy 03/11/21
--- OUTSIDE RECORDS SUMMARY | 2024-11-11 16:51 | XMS_ITS | Referral Summary ---
Author Organization [facility] Address [address] [place] [address] Care Team Providers Care Scaffolding Helper Name Role Phone Dave Stovall MD Primary Care Provider [phone] Tiago Gomez DPT Unavailable [phone] Allergies No known active allergies Medications buPROPion [...] mouth nightly Active vitamins A,C,E-zinc-wilfredo er 7,160-113-100 zghl-tp-jput tablet,delayed release (DR/EC) Take by mouth daily Active levocetirizine (XYZAL) 5 mg tablet Take 1 tablet (5 mg total) by mouth every evening Active Active Problems Problem Noted Date Diagnosed Date Spondylolisthesis at L4-L5 level 10/27/2021 Assessment & Plan (01/04/2022 3:13 PM CDT): Mrs. Gomez wishes to delay consideration of any surgical treatment until after a trip to [place] in the fall. If symptoms worsen and [...] surgical treatment until after a trip to [place] in the fall. 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 Gender Identity Female 10/23/2018 7:59 AM CDT [...] CDT Plan of Treatment Not on file Insurance UHC MEDICARE ADVANTAGE [facility] Address: [place] [id number] UHC MEDICARE ADVANTAGE [facility] Address: [place] [phone] [facility] Care Teams Scaffolding Helper Relationship Specialty Start Date End Date Dave Stovall MD [address] [facility] [address] [place] [address] PCP - General 08/31/16 Tiago Gomez DPT [address] [facility] [address] [place] [address] Physical Therapist Physical Therapy 03/11/21
--- OUTSIDE RECORDS SUMMARY | 2024-11-11 16:51 | XMS_ITS | Encounter Summary ---
Author Organization [facility] Address [address] [facility] [place] [address] Care Team Providers Care Radioactivity Technician Name Role Phone Dave Stovall MD Primary Care Provider [phone] Encounter Details Date Type Department Care Team (Late st Contact Info) Description 01/10/2019 Lab Requisition [facility] DermPath Lab [address] [facility] [place] [phone] Hiren Goetz MD [address] [address] Social History Tobacco Use Types Packs/Day Years Used Date Smoking Tobacco: Never Assessed Comments Unknown Sex and Gender Information Value Date Recorded Sex Assigned at Female 12/17/2023 11:42 AM CDT 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 Gender Identity Female 12/17/2023 11:42 AM CDT Sexual Orientation Lesbian 12/17/2023 11 :42 AM CDT documented as of this encounter Plan of Treatment Not on file documented as of this encounter Procedures Procedure Name Priority Date/Time Associated Diagnosis Comments DERMATOPATHOLOGY Routine 01/09/2019 12:0 0 AM CDT documented in this encounter Results * DERMATOPATHOLOGY (01/09/2019 12:00 AM CDT) Case Report Dermatopathology Report Case: [id number] Authorizing Provider: Hiren Goetz MD Collected: 01/09/2019 12:00 AM Ordering Location: [facility] DermPath Lab Received: 01/10/2019 12:11 PM Pathologist: García Chung MD Specimen: Skin, left paranasal skin 2:34 PM CDT DERMATOPATHOLOGY LABORATORY Final Diagnosis Specimen A. SKIN, left paranasal skin: BENIGN VERRUCOUS KERATOSIS, INFLAMED (L82.1) 9 2:34 PM CDT DERMATOPATHOLOGY LABORATORY at 1434 CDT Clinical History R/O BCC. 2:34 PM CDT DERMATOPATHOLOGY LABORATORY Gross Description Specimen A: Received is one formalin filled container labeled with the patient's name and designated left paranasal skin. The specimen consists of a shave biopsy measuring [id number]. Jar 0. 2:34 PM CDT DERMATOPATHOLOGY LABORATORY Microscopic Description Specimen A. SKIN, left paranasal skin: Sections show hyperkeratosis, papillomatosis, hypergranulosis, and acanthosis. Inflammatory cells are present within the dermis. These histological findings can be seen in a verruca vulgaris or a seborrheic keratosis. 2:34 PM CDT DERMATOPATHOLOGY LABORATORY Disclaimer An external and internal positive and negative controls are appropriate for the histochemical, immunohistochemical and immunofluorescence stain(s) in this case (if any), except where stated explicitly. The performance characteristics of the stain(s) cited in this report were developed and its performance characteristic determined by the Dermatopathology Laboratory at [facility], directed by Dr. Tyree Chung. These tests need not be, and therefore are not, approved by the [place] Food and Drug Administration. The tests are used for clinical purposes. Billing Codes Specimen Charges Stain Charges 08303 1 9 2:34 PM CDT DERMATOPATHOLOGY LABORATORY Embedded Images 2:34 PM CDT DERMATOPATHOLOGY LABORATORY Pathology/Cytolog y TISSUE SPECIMEN FROM SKIN / Unknown 01/09/2019 01/10/2019 12:11 PM CDT us Hiren Goetz MD LAB - PATHOLOGY/CYTOLOGY ORD ERABLES Final Result DERMATOPATHOLOGY LABORATORY [facility] - Department of Dermatology [address] [facility], 5th Floor Lab [address] [place], [place] [id number] [place] [address] documented in this encounter Visit Diagnoses Not on filedocumented in this encounter Care Teams Radioactivity Technician Relationship Specialty Start Date End Date Dave Stovall MD [address] [place] [phone] PCP - General Internal Medicine 12/14/23 documented as of this encounter
--- OUTSIDE RECORDS SUMMARY | 2024-11-11 16:51 | XMS_ITS | Clinical Summary ---
Author Organization [facility] Address [address] [facility] [place] [address] Care Team Providers Care Slitter Service And Setter Name Role Phone Dave Stovall MD Primary Care Provider [phone] Source Comments [facility],non-owned Affiliates and Associated Physician Practices is amultiple site organization consisting of ambulatory clinics and hospital sitesin [place], [place], [place] and [place]. This disclosure is being madepursuant to the Care Everywhere program and may not contain all information available regarding this patient. Last updated 18.[facility] Allergies No known active allergies Medications * Be aware that medications may not be up to date on this document. Alwaysverify current medications with the patient. acetaminophen CR (Tylenol Arthritis Pain) 650 MG [...] mouth at bedtime Active Cholecalciferol 1.25 MG (12301 UT) Take 1 capsule by mouth once daily Active clobetasol (Temovate) 0.05 % ointment Apply to affected area 2 times daily as needed 09/07/2023 Active HYDROcodone-stefania taminophen ([place]) 5-325 MG tablet Take 1 (one) tablet by mouth 4 times daily as needed For pain. 11/14/2023 Active levocetirizine (Xyzal) 5 MG tablet Take 1 (one) tablet by mouth once daily Active Magnesium Citrate 100 MG Take 1 (one) tablet by mouth at bedtime Active Multiple Vitamins-Minera ls (PRESERVISION AREDS PO) Take by mouth once daily Active rosuvastatin (Crestor) 10 MG tablet Take 1 (one) tablet by mouth once daily Active meloxicam (Mobic) 15 MG tabletIndicatio ns:Pain of left heel,Plantar fasciitis, left,Achilles tendinitis of left lower extremity Take 1 (one) tablet by mouth once daily as needed with food 30 tablet 1 12/14/2023 Active Active Problems Problem Noted Date Diagnosed Date Lumbar stenosis 06/04/2022 Spondylolisthesis at L4-L5 level 10/27/2021 Overview (12/14/2023): Last Assessment & Plan: Mrs. Henderson wishes to delay consideration of any surgical treatment until after a trip to [place] in the fall. If symptoms worsen and she wishes to proceed with surgery, she would benefit from L3-L5 laminectomy and fusion. Patient to call the office when she is ready to schedule. 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 Gender Identity Female 12/17/2023 11:42 AM CDT [...] 2:45 PM CDT Height 162.6 cm (5' 4) 12/14/2023 2:45 PM CDT Body Mass Index [...] - 1-dose 75+ series) 2021 COVID-19 VACCINE (1 - 2023-2 5 season) 2024 DEPRESSION SCREENING 05/15/2024 MEDICARE AWV CALENDAR YEAR 2024 INFLUENZA VACCINE (Season Ended) 2025 HEPATITIS B VACCINE Aged Out No longe r eligible based on patient's age to complete this topic HIB VACCINE Aged Out No longer eligi ble based on patient's age to complete this topic HPV VACCINE Aged Out No longer eligi ble based on patient's age to complete this topic MENINGOCOCCAL (Group B) VACC INE SHARED DECISION-MAKING Aged Out No longer eligibl e based on patient's age to complete this topic MENINGOCOCCAL GROUPS A/C/Y/W VACCINE Aged Out No longer eligible b ased on patient's age to complete this topic Insurance [facility] [place] [address] [place] [address] [employer] MEDICARE ADV Care Teams Slitter Service And Setter Relationship Specialty Start Date End Date Dave Stovall MD [address] [place] [address] PCP - General Internal Medicine 12/14/23
[2024-11-11 18:07] LABS: Alanine Aminotransferase 24 U/L (6-35); Albumin Level 4.4 g/dL (3.5-5.1); Alkaline Phosphatase 47 U/L (38-126); Anion Gap 8 mmol/L (4-12); Aspartate Amino Transferase 29 U/L (14-36); Bilirubin,Total 0.3 mg/dL (0.2-1.3); Blood Urea Nitrogen 14 mg/dL (7-17); Calcium 9.1 mg/dL (8.4-10.2); Carbon Dioxide 29 mmol/L (22-30); Chloride 104 mmol/L (98-107); Cholesterol 138 mg/dL (0-200); Estimated Glomerular Filt Rate > 60; Glucose 88 mg/dL (65-110); HDL Direct 57 mg/dL; Potassium 4.1 mmol/L (3.4-5.0); Sodium 141 mmol/L (137-145); Total Protein 7.3 g/dL (6.3-8.2); Triglycerides 115 mg/dL (<150)
[2024-11-11 18:18] LABS: LDL Cholesterol Direct 51 mg/dL
[2024-11-11 18:31] LABS: Free T4 Free Thyroxine. 0.79 ng/dL (0.78-2.19); Vitamin D 25 Hydroxy 35.3 ng/mL
[2024-11-11 18:58] LABS: Hemoglobin A1C. 5.9 % (<5.7)
== END 2024-11-11 16:49 | disposition home or self-care (01) ==
LOC: ANHLAB 16:49
PROVIDERS: PCP Internal Medicine; Visit Provider Internal Medicine
DX: E78.2 Mixed hyperlipidemia (principal); R73.03 Prediabetes; E55.9 Vitamin D deficiency, unspecified; Z13.29 Encounter for screening for other suspected endocrine disorder; Z79.899 Other long term (current) drug therapy
CPT/HCPCS: 36415; 80053; 80061; 82306; 83036; 84439; 84443

== ENCOUNTER 2025-03-26 17:35 | Outpatient (CLI) | payer MEDICARE, SELFPAY ==
[2025-03-26 18:05] LABS: Hematocrit 41.7 % (37.0-47.0); Hemoglobin 13.6 g/dL (12.0-15.0); Immature Granulocyte Percent A 0.3 % (0-0.5); Lymphocytes Absolute Auto 1.26 K/mm3 (0.9-3.2); Mean Corpuscular HGB Conc 32.6 g/dl (32-36); Mean Corpuscular Hemoglobin 30.6 pg (26-34); Mean Corpuscular Volume 93.9 fl (80-100); Nucleated Red Blood Cells Absolute Auto 0.000 K/mm3 (0.0-0.012); Nucleated Red Blood Cells Perc 0.0 % (0.0-0.2); Platelet Count Result 247 k/mm3 (150-375); Red Blood Count 4.44 M/mm3 (4.2-5.4); White Blood Count 6.5 K/mm3 (4.5-10.0)
[2025-03-26 18:16] LABS: Anion Gap 9 mmol/L (4-12); Blood Urea Nitrogen 15 mg/dL (7-17); Calcium 9.1 mg/dL (8.4-10.2); Carbon Dioxide 23 mmol/L (22-30); Chloride 105 mmol/L (98-107); Cholesterol 152 mg/dL (0-200); Estimated Glomerular Filt Rate > 60; Glucose 103 mg/dL (65-110); HDL Direct 61 mg/dL; Sodium 137 mmol/L (137-145); Triglycerides 131 mg/dL (<150)
[2025-03-26 18:21] LABS: Hemoglobin A1C 5.9 % (<5.7)
[2025-03-26 18:34] LABS: Free T4 Free Thyroxine 0.88 ng/dL (0.78-2.19)
[2025-03-26 18:51] LABS: Thyroid Stimulating Hormone 0.953 uIU/mL (0.465-4.680)
[2025-03-26 19:53] LABS: Potassium 3.7 mmol/L (3.4-5.0)
== END 2025-03-26 17:36 | disposition home or self-care (01) ==
LOC: ANHLAB 17:35
PROVIDERS: PCP Internal Medicine; Visit Provider Internal Medicine
DX: E78.2 Mixed hyperlipidemia (principal); Z13.29 Encounter for screening for other suspected endocrine disorder; R73.03 Prediabetes; Z79.899 Other long term (current) drug therapy
CPT/HCPCS: 36415; 80048; 80061; 83036; 84439; 84443; 85025